=== PATIENT | male | born 1990 | race Asian ===

== ENCOUNTER 2018-12-15 14:45 | Emergency (ER) | payer BC ==
[2018-12-15 15:05] VITALS: BP 115/79
--- NOTE | 2018-12-15 15:28 | ED ---
Abdominal Pain/Male - HPI Summary HPI Summary: 28 yr old male with the complaint of low epigastric pain. Onset 1330 this afternoon. 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 His pain gets up to a 7/10 at times. His pain is less now. He has not vomited. Pain is worse with walking and movement. He drove himself here. - History of Current Complaint Chief Complaint: UCAbdominalPain Stated Complaint: ABD PAIN Time Seen by Provider: 12/15/18 15:15 Pain Intensity: 7 - Allergies/Home Medications Allergies/Adverse Reactions: Allergies Allergy/AdvReac Type Severity Reaction Status Date / Time No Known Allergies Allergy Verified 12/15/18 15:06 Home Medications: Home Medications SUMAtriptan TAB* [Imitrex TAB*] 2 tab PO DAILY PRN 12/15/18 [History Confirmed 12/15/18] PMH/Surg Hx/FS Hx/Imm Hx Infectious Disease History: No Infectious Disease History: Denies: Traveled Outside the in Last 30 Days - Social History Alcohol Use: None Substance Use Type: Reports: None Smoking Status (MU): Never Smoked Tobacco Review of Systems Constitutional: Negative Positive: Abdominal Pain All Other Systems Reviewed And Are Negative: Yes Physical Exam Triage Information Reviewed: Yes Vital Signs On Initial Exam: Initial Vitals Temp Pulse Resp BP Pulse Ox 98.8 F 72 16 115/79 100 12/15/18 14:59 12/15/18 14:59 12/15/18 14:59 12/15/18 14:59 12/15/18 14:59 Vital Signs Reviewed: Yes Appearance: Positive: Well-Appearing, No Pain Distress Skin: Positive: Warm, Skin Color Reflects Adequate Perfusion Head/Face: Positive: Normal Head/Face Inspection Eyes: Positive: EOMI ENT: Positive: Normal ENT inspection Neck: Positive: Nontender Respiratory/Lung Sounds: Positive: Clear to Auscultation, Breath Sounds Present Cardiovascular: Positive: RRR. Negative: Murmur Abdomen Description: Positive: Other: - tender in the epigastric area. No hernias palpated.. Negative: Distended Musculoskeletal: Positive: Strength/ROM Intact Neurological: Positive: Sensory/Motor Intact, Alert, Oriented to Person Place, Time, CN Intact II-III, Normal Gait, Speech Normal Psychiatric: Positive: Normal Diagnostics - Vital Signs Vital Signs Temp Pulse Resp BP Pulse Ox 12/15/18 14:59 98.8 F 72 16 115/79 100 - Laboratory Lab Statement: Any lab studies that have been ordered have been reviewed, and results considered in the medical decision making process. Abdominal Pain Male Course/Dx - Course Course Of Treatment: 28 yr old male with abdominal pain, epigastric. He signed out AMA refusing ambulance transfer. He verbalized he is driving himself to the ER. - Diagnoses Provider Diagnoses: Epigastric abdominal pain Discharge - Sign-Out/Discharge Documenting (check all that apply): Patient Departure All imaging exams completed and their final reports reviewed: No Studies - Discharge Plan Condition: Good Disposition: AGAINST MEDICAL ADVICE Patient Education Materials: Acute Abdominal Pain (ED) Referrals: No Primary Care Phys,NOPCP [Primary Care Provider] - - Billing Disposition and Condition Condition: GOOD Disposition: Against Medical Advice
== END 2018-12-15 15:30 | disposition left against medical advice (07) ==
LOC: UCEAST 14:45
DX: R10.13 Epigastric pain (principal)
CPT/HCPCS: 99202; G0463

== ENCOUNTER 2018-12-15 15:49 | Emergency (ER) | payer BC ==
[2018-12-15 16:57] LABS: ABS Eosinophils 0.1 10^3/ul (0-0.6); ABS Lymphocytes 1.5 10^3/ul (1.0-4.8); ABS Monocytes 0.4 10^3/ul (0-0.8); ABS Neutrophils 5.6 10^3/ul (1.5-7.7); Eosinophil % 1.2 %; Hematocrit 45 % (42-52); Hemoglobin 14.9 g/dL (14.0-18.0); Lymphocyte % 19.6 %; Mean Corpuscular HGB Conc 33 g/dL (31-36); Mean Corpuscular Hemoglobin 29 pg (27-31); Mean Corpuscular Volume 87 fL (80-94); Mean Platelet Volume 8.4 fL (7.4-10.4); Nucleated Red Blood Cells % 0.1; Platelet Count 303 10^3/uL (150-450); Red Cell Distribution Width 13 % (10-15); White Blood Count 7.6 10^3/uL (3.5-10.8)
[2018-12-15 17:11] LABS: ALT 20 U/L (7-52); Albumin 4.5 g/dL (3.2-5.2); Albumin/Globulin Ratio 1.7 (1-3); Alkaline Phosphatase 63 U/L (34-104); BUN/Creatinine Ratio 18.3 (8-20); Blood Urea Nitrogen 21 mg/dL (6-24); C Reactive Protein < 1.00 mg/L (<8.01); CO2 Carbon Dioxide 29 mmol/L (22-32); Calcium 9.5 mg/dL (8.6-10.3); Chloride 105 mmol/L (101-111); EGFR African American 91.6 (>60); EGFR Non-African American 75.7 (>60); Globulin 2.6 g/dL (2-4); Glucose 102 mg/dL (70-100); Sodium 139 mmol/L (135-145); Total Protein 7.1 g/dL (6.4-8.9)
[2018-12-15 17:13] LABS: Anion Gap 5 mmol/L (2-11)
[2018-12-15 18:59] LABS: Potassium Redraw 4.1 mmol/L (3.5-5.0)
[2018-12-15 20:10] LABS: Urine Appearance Clear; Urine Bilirubin Negative (Negative); Urine Blood Negative (Negative); Urine Color Yellow; Urine Glucose Negative (Negative); Urine Ketones Trace (Negative); Urine Nitrite Negative (Negative); Urine Protein Negative (Negative); Urine Specific Gravity 1.016 (1.010-1.030); Urine Urobilinogen Negative (Negative)
--- NOTE | 2018-12-15 20:26 | ED ---
Abdominal Pain/Male - HPI Summary HPI Summary: A 28 y/o male presents to [facility] with a chief complaint of abdominal pain. He reports that he has had sharp pain twice per minute since 13:30, stabbing in his epigastrum. He said that his pain worsened and his colleagues made him come to the ED. He denies any N/V/D. Now he reports feeling better. He says that he had similar symptoms about 10 years ago. He reports a Hx of hiatal hernia and migraines. He denies any FHx. - History of Current Complaint Chief Complaint: EDAbdPain Stated Complaint: ABD PAIN PER PT Time Seen by Provider: 12/15/18 19:43 Hx Obtained From: Patient Onset/Duration: Sudden Onset, Lasting Hours, Still Present Timing: Intermittent - twice per minute Severity Initially: Severe Severity Currently: Mild Pain Intensity: 1 Pain Scale Used: 0-10 Numeric Location: Diffuse Radiates: No Character: Sharp Aggravating Factor(s): Nothing Alleviating Factor(s): Nothing Associated Signs And Symptoms: Negative: Fever, Nausea, Vomiting, Diarrhea - Allergies/Home Medications Allergies/Adverse Reactions: Allergies Allergy/AdvReac Type Severity Reaction Status Date / Time No Known Allergies Allergy Verified 12/15/18 15:06 Home Medications: Home Medications NK [No Home Medications Reported] 12/15/18 [History Confirmed 12/15/18] PMH/Surg Hx/FS Hx/Imm Hx GI History: Reports: Hx Hiatal Hernia Neurological History: Reports: Hx Migraine Infectious Disease History: No Infectious Disease History: Denies: Traveled Outside the [place] in Last 30 Days - Family History Known Family History: Negative: Cardiac Disease, Hypertension, Diabetes - Social History Alcohol Use: None Substance Use Type: Reports: None Smoking Status (MU): Never Smoked Tobacco Review of Systems Negative: Fever Positive: Abdominal Pain. Negative: Vomiting, Diarrhea, Nausea All Other Systems Reviewed And Are Negative: Yes Physical Exam - Summary Physical Exam Summary: Constitutional: Well-developed, Well-nourished, Alert. (-) Distressed Skin: Warm, Dry HENT: Normocephalic; Atraumatic Eyes: Conjunctiva normal Neck: Musculoskeletal ROM normal neck. (-) JVD, (-) Stridor, (-) Nuchal rigidity Cardio: Rhythm regular, rate normal, Heart sounds normal; Intact distal pulses; Radial pulses are 2+ and symmetric. (-) Murmur Pulmonary/Chest wall: Effort normal. (-) Respiratory distress, (-) Wheezes, (-) Rales Abd: Soft, (-) tenderness, (-) Distension, (-) Guarding, (-) Rebound Musculoskeletal: (-) Edema Lymph: (-) Cervical adenopathy Neuro: Alert, Oriented x3 Psych: Mood and affect Normal Triage Information Reviewed: Yes Vital Signs On Initial Exam: Initial Vitals Temp Pulse Resp BP Pulse Ox 98.4 F 72 18 113/60 96 12/15/18 15:56 12/15/18 15:56 12/15/18 15:56 12/15/18 15:56 12/15/18 15:56 Vital Signs Reviewed: Yes Diagnostics - Vital Signs Vital Signs Temp Pulse Resp BP Pulse Ox 12/15/18 17:45 98.4 F 61 20 131/71 98 12/15/18 15:56 98.4 F 72 18 113/60 96 - Laboratory Lab Results: Lab Results 12/15/18 12/15/18 12/15/18 Range/Units 16:33 16:33 16:33 WBC 7.6 (3.5-10.8) 10^3/uL RBC 5.20 (4.18-5.48) 10^6 /uL Hgb 14.9 (14.0-18.0) g/dL Hct 45 (42-52) % MCV 87 (80-94) fL MCH 29 (27-31) pg MCHC 33 (31-36) g/dL RDW 13 (10-15) % Plt Count 303 (150-450) 10^3/uL MPV 8.4 (7.4-10.4) fL Neut % (Auto) 73.5 % Lymph % (Auto) 19.6 % [place] % (Auto) 5.3 % Eos % (Auto) 1.2 % Baso % (Auto) 0.4 % Absolute Neuts (auto) 5.6 (1.5-7.7) 10^3/ul Absolute Lymphs (auto) 1.5 (1.0-4.8) 10^3/ul Absolute Monos (auto) 0.4 (0-0.8) 10^3/ul Absolute Eos (auto) 0.1 (0-0.6) 10^3/ul Absolute Basos (auto) 0.0 (0-0.2) 10^3/ul Absolute Nucleated RBC 0.0 10^3/ul Nucleated RBC % 0.1 Sodium 139 (135-145) mmol/L Potassium TNP Chloride 105 (101-111) mmol/L Carbon Dioxide 29 (22-32) mmol/L Anion Gap 5 (2-11) mmol/L BUN 21 (6-24) mg/dL Creatinine 1.15 (0.67-1.17) mg/dL Est GFR ( Amer) 91.6 (>60) Est GFR (Non-Af Amer) 75.7 (>60) BUN/Creatinine Ratio 18.3 (8-20) Glucose 102 H (70-100) mg/dL Lactic Acid 0.6 (0.5-2.0) mmol/L Calcium 9.5 (8.6-10.3) mg/dL Total Bilirubin 0.60 (0.2-1.0) mg/dL AST TNP ALT 20 (7-52) U/L Alkaline Phosphatase 63 (34-104) U/L C-Reactive Protein < 1.00 (<8.01) mg/L Total Protein 7.1 (6.4-8.9) g/dL Albumin 4.5 (3.2-5.2) g/dL Globulin 2.6 (2-4) g/dL Albumin/Globulin Ratio 1.7 (1-3) Lipase 14 (11.0-82.0) U/L Urine Color Urine Appearance Urine pH (5-9) Ur Specific [place] (1.010-1.030) Urine Protein (Negative) Urine Ketones (Negative) Urine Blood (Negative) Urine Nitrate (Negative) Urine Bilirubin (Negative) Urine Urobilinogen (Negative) Ur Leukocyte Esterase (Negative) Urine Glucose (Negative) 12/15/18 12/15/18 Range/Units 18:10 20:00 WBC (3.5-10.8) 10^3/uL RBC (4.18-5.48) 10^6 /uL Hgb (14.0-18.0) g/dL Hct (42-52) % MCV (80-94) fL MCH (27-31) pg MCHC (31-36) g/dL RDW (10-15) % Plt Count (150-450) 10^3/uL MPV (7.4-10.4) fL Neut % (Auto) % Lymph % (Auto) % [place] % (Auto) % Eos % (Auto) % Baso % (Auto) % Absolute Neuts (auto) (1.5-7.7) 10^3/ul Absolute Lymphs (auto) (1.0-4.8) 10^3/ul Absolute Monos (auto) (0-0.8) 10^3/ul Absolute Eos (auto) (0-0.6) 10^3/ul Absolute Basos (auto) (0-0.2) 10^3/ul Absolute Nucleated RBC 10^3/ul Nucleated RBC % Sodium (135-145) mmol/L Potassium 4.1 Chloride (101-111) mmol/L Carbon Dioxide (22-32) mmol/L Anion Gap (2-11) mmol/L BUN (6-24) mg/dL Creatinine (0.67-1.17) mg/dL Est GFR ( Amer) (>60) Est GFR (Non-Af Amer) (>60) BUN/Creatinine Ratio (8-20) Glucose (70-100) mg/dL Lactic Acid (0.5-2.0) mmol/L Calcium (8.6-10.3) mg/dL Total Bilirubin (0.2-1.0) mg/dL AST 20 ALT (7-52) U/L Alkaline Phosphatase (34-104) U/L C-Reactive Protein (<8.01) mg/L Total Protein (6.4-8.9) g/dL Albumin (3.2-5.2) g/dL Globulin (2-4) g/dL Albumin/Globulin Ratio (1-3) Lipase (11.0-82.0) U/L Urine Color Yellow Urine Appearance Clear Urine pH 6.0 (5-9) Ur Specific [place] 1.016 (1.010-1.030) Urine Protein Negative (Negative) Urine Ketones Trace A (Negative) Urine Blood Negative (Negative) Urine Nitrate Negative (Negative) Urine Bilirubin Negative (Negative) Urine Urobilinogen Negative (Negative) Ur Leukocyte Esterase Negative (Negative) Urine Glucose Negative (Negative) Result Diagrams: 12/15/18 16:33 12/15/18 18:10 Lab Statement: Any lab studies that have been ordered have been reviewed, and results considered in the medical decision making process. - Radiology abdomen x-ray Radiology Interpretation Completed By: Radiologist Summary of Radiographic Findings: Moderately large volume of stool in the colon without additional radiographic finding. ED physician has reviewed this imaging report. - Ultrasound No standard instances Ultrasound Interpretation Completed By: Radiologist Summary of Ultrasound Findings: Negative RIGHT upper quadrant ultrasound. ED physician has reviewed this imaging report. Re-Evaluation - Re-Evaluation First Eval Change: Improved - Patient states his symptoms have resolved, given return precautions including fevers, vomiting, worsening of pain. Abdominal Pain Male Course/Dx - Course Course Of Treatment: 28-year-old male with a history of a hiatal hernia presents with abdominal pain. ddx: UTI/pyelo- no dysuria, no hematuria, UA neg. Appendicitis - no RLQ tenderness, no white count or fevers, low suspicion. Gall bladder pathology - Neg RUQ US, LFT and bili wnl, low suspicion. Pancreatitis - normal lipase. PUD - no hx of PUD, H pylori, or NSAID use low suspicion. GERD - no burning epigastric pain, no nighttime cough , no history of GERD in past - Diagnoses Provider Diagnoses: Epigastric pain Discharge - Sign-Out/Discharge Documenting (check all that apply): Patient Departure - DC Patient Received Moderate/Deep Sedation with Procedure: No - Discharge Plan Condition: Stable Disposition: HOME Patient Education Materials: Epigastric Pain (ED) Referrals: [facility] [Outside] Additional Instructions: You were seen in the emergency department for epigastric pain. Your labs were normal. The ultrasound of your gallbladder is normal. If any studies were not completed at the time of discharge you will be called with the relevant results. Please follow up with your primary care doctor in next 2-3 days and return to emergency department for worsening or concerning symptoms. - Billing Disposition and Condition Condition: STABLE Disposition: Home - Attestation Statements Document Initiated by Scribe: Yes Documenting Scribe: Barrington Arroila Provider For Whom Amanda is Documenting (Include Credential): Andreea Giles MD Scribe Attestation: Barrington Ag, scribed for Andreea Giles MD on 12/15/18 at 2159. Scribe Documentation Reviewed: Yes Provider Attestation: The documentation as recorded by the scribe, Barrington Arriola accurately reflects the service I personally performed and the decisions made by me, Andreea Giles MD Status of Scribe Document: Viewed
[2018-12-15 20:49] VITALS: BP 112/76
== END 2018-12-15 20:48 | disposition home or self-care (01) ==
LOC: ED 15:49
DX: R10.13 Epigastric pain (principal)
CPT/HCPCS: 36415; 74018; 76705; 80053; 81003; 83605; 83690; 85025; 86140; 99282

== ENCOUNTER 2019-03-24 14:34 | Emergency (ER) | payer BC ==
[2019-03-24 14:55] VITALS: BP 127/77
--- NOTE | 2019-03-24 15:20 | UC ---
HPI Febrile Illness - HPI Summary HPI Summary: Mr. Kaufman presents with a fever. 3 days ago he started having pain in his left shoulder and has difficulty lifting it. Today he began to have pain at the second MPJ of his right hand and at this point it hurt so much he can't hold anything. He traveled to [place] 3 weeks ago and was finally came back but felt that he caught a cold soon after with congestion and coughing. That is now resolved. - History of Current Complaint Chief Complaint: UCSkin Hx Obtained From: Patient Onset/Duration: Started Days Ago Timing: Constant Initial Severity: Mild Current Severity: Moderate Pain Intensity: 7 Aggravating Factors: Nothing Alleviating Factors: Nothing Associated Signs and Symptoms: Chills - Allergy/Home Medications Allergies/Adverse Reactions: Allergies Allergy/AdvReac Type Severity Reaction Status Date / Time No Known Allergies Allergy Verified 12/15/18 15:06 Home Medications: Home Medications Ibuprofen [Advil] 200 mg 03/24/19 [History] PMH/Surg Hx/FS Hx/Imm Hx Previously Healthy: Yes - Surgical History Surgical History: None - Family History Known Family History: Negative: Cardiac Disease, Hypertension, Diabetes - Social History Alcohol Use: None Substance Use Type: None Smoking Status (MU): Never Smoked Tobacco Review of Systems All Other Systems Reviewed And Are Negative: Yes Physical Exam - Summary Physical Exam Summary: Is nontoxic in appearance but febrile with borderline tachycardia Triage Information Reviewed: Yes Appearance: Well-Appearing Vital Signs: Initial Vital Signs Temp 102.9 F 03/24/19 14:43 Pulse 96 03/24/19 14:43 Resp 16 03/24/19 14:43 BP 127/77 03/24/19 14:43 Pulse Ox 100 03/24/19 14:43 Eyes: Positive: Conjunctiva Clear ENT: Positive: Normal ENT inspection Neck: Positive: Supple Respiratory Exam: Normal Abdominal Exam: Normal Musculoskeletal Exam: Other - He is very tender in his anterior left shoulder with abduction, flexion or extension. His right second dorsal MPJ is inflamed and erythematous. It's tender to any range of motion Neurological Exam: Normal Psychological Exam: Normal Course/Dx - Course Course Of Treatment: I recommended that they have bloodwork immediately at the emergency department and he agreed to go over there. I explained the risks in putting this off. - Diagnoses Provider Diagnosis: Febrile illness Discharge ED - Sign-Out/Discharge Documenting (check all that apply): Patient Departure All imaging exams completed and their final reports reviewed: No Studies - Discharge Plan Condition: Stable Disposition: HOME-RECOMMEND TO ED Patient Education Materials: Fever in Adults (ED) Referrals: No Primary Care Phys,NOPCP [Primary Care Provider] - Additional Instructions: Please go directly to the emergency department for further evaluation including blood work. - Billing Disposition and Condition Condition: STABLE Disposition: Home-Recommend to ED
== END 2019-03-24 15:58 | disposition home health service (06) ==
LOC: UCEAST 14:34
DX: R50.9 Fever, unspecified (principal)
CPT/HCPCS: 99201; G0463

== ENCOUNTER 2019-03-24 16:12 | Emergency (ER) | payer BC ==
[2019-03-24 18:30] LABS: ABS Lymphocytes 0.9 10^3/ul (1.0-4.8); ABS Monocytes 0.7 10^3/ul (0-0.8); ABS Neutrophils 8.5 10^3/ul (1.5-7.7); Eosinophil % 0.2 %; Hematocrit 42 % (42-52); Hemoglobin 14.5 g/dL (14.0-18.0); Lymphocyte % 9.2 %; Mean Corpuscular HGB Conc 34 g/dL (31-36); Mean Corpuscular Hemoglobin 29 pg (27-31); Mean Corpuscular Volume 86 fL (80-94); Mean Platelet Volume 7.7 fL (7.4-10.4); Platelet Count 281 10^3/uL (150-450); Red Blood Count 4.94 10^6 /uL (4.18-5.48); Red Cell Distribution Width 13 % (10-15); White Blood Count 10.2 10^3/uL (3.5-10.8)
[2019-03-24 18:48] LABS: Albumin 4.4 g/dL (3.2-5.2); Albumin/Globulin Ratio 1.6 (1-3); BUN/Creatinine Ratio 14.3 (8-20); Calcium 9.5 mg/dL (8.6-10.3); EGFR African American 88.1 (>60); EGFR Non-African American 72.8 (>60); Globulin 2.8 g/dL (2-4); Potassium 3.8 mmol/L (3.5-5.0); Total Bilirubin 0.8 mg/dL (0.2-1.0); Total Protein 7.2 g/dL (6.4-8.9)
[2019-03-24 19:50] LABS: INR 1.15 (0.82-1.09)
[2019-03-24 20:37] LABS: C Reactive Protein 17.96 mg/L (<8.01)
[2019-03-24 21:04] LABS: Erythrocyte Sed Rate 4 mm/Hr (0-14)
[2019-03-24] MEDS ORDERED: Ibuprofen TAB* 400 MG PO ONE (21:10)
--- NOTE | 2019-03-24 21:17 | ED ---
Complex/Multi-Sys Presentation - HPI Summary HPI Summary: Patient is a 28 y/o M presenting to [facility] with complaints of left shoulder pain and swelling, pain and swelling of right hand 2nd finger joint, and fever. He notes that he has returned from [place] approximately three weeks ago. 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 He states that he had been experiencing a cough since returning to [place], but this has resolved as of 3 days ago. However, as of 3 days ago, he had onset of pain and swelling to left shoulder. These initial Sx are characterized as mild. This morning, 03/24/19, he reports onset of swelling at joint of right finger, decreased appetite, and fever. Patient went to and was noted to have temp of 102 F. He was sent to ED for further workup. Since arriving in waiting room, patient has had onset of chills and THOMAS. N/V/D, dysuria, abdominal pain, CP and SOB are denied. No injuries to finger or shoulder are noted. PMHx of migraines is noted. Tobacco, alcohol, and substance usage are denied. FMHx of migraines denied. No PSHx is noted. On triage, pain is rated 7/10. Home medications and allergies are reviewed. - History Of Current Complaint Chief Complaint: EDFever Time Seen by Provider: 03/24/19 20:39 Hx Obtained From: Patient Onset/Duration: Still Present Timing: Constant, Hours - fever, decreased appetite, right hand finger swelling and pain, Days Severity Currently: Severe Location: Pain At: - left shoulder, right hand finger Associated Signs And Symptoms: Positive: Headache, Fever, Other - positive - chills, decreased appetite, left shoulder pain and swelling, right hand finger swelling and pain. Negative: SOB, Chest Pain, Nausea, Vomiting, Diarrhea, Abdominal Pain, Dysuria - Allergies/Home Medications Allergies/Adverse Reactions: Allergies Allergy/AdvReac Type Severity Reaction Status Date / Time No Known Allergies Allergy Verified 03/24/19 16:18 PMH/Surg Hx/FS Hx/Imm Hx Endocrine/Hematology History: Denies: Hx Diabetes Cardiovascular History: Denies: Hx Hypertension GI History: Reports: Hx Hiatal Hernia Neurological History: Reports: Hx Migraine Infectious Disease History: No Infectious Disease History: Reports: Traveled Outside the [place] in Last 30 Days - Family History Known Family History: Negative: Cardiac Disease, Hypertension, Diabetes - Social History Alcohol Use: None Substance Use Type: Reports: None Smoking Status (MU): Never Smoked Tobacco Review of Systems - ROS Summary Review of Systems Summary: Home Medications Medication Instructions Recorded Confirmed Type Ibuprofen [Advil] 400 mg PO Q6HR PRN 03/24/19 03/24/19 History Positive: Fever, Chills Negative: Chest Pain Negative: Shortness Of Breath Gastrointestinal: Other - positive - decreased appetite Negative: Abdominal Pain, Vomiting, Diarrhea, Nausea Negative: dysuria Musculoskeletal: Other - positive - left shoulder pain and swelling, right hand finger swelling and pain Positive: Headache All Other Systems Reviewed And Are Negative: Yes Physical Exam - Summary Physical Exam Summary: General: Well-developed, Thin male. No acute distress. HEENT: Normocephalic, Atraumatic. Eyes: Conjuctiva normal, PERRL. Ears: TMs within normal limits. Nares: (-) discharge, (-) erythema. Oropharynx: Clear, mucous membranes moist, (-) exudates. Neck: Soft, FROM, (-) lymphadenopathy, (-) thyromegaly, (-) JVD. Cardiovascular: Normal sinus rhythm, (-) murmur. Lungs: Clear to auscultation bilaterally (-) wheezes, (-) rales, (-) rhonchi. Abdomen: Soft, non-tender, non-distended, (-) organomegaly, normal bowel sounds. Back: (-) CVA tenderness Extremities: Limited ROM of left shoulder secondary to pain. There is no swelling and erythema. Normal pulses and cap refill. Strength and sensation are intact distally. 2nd PIP joint of the right hand is erythematous and swollen. Good ROM of finger, good cap refill. Skin: Hot to touch, dry, (-) rash. Neuro: Alert and oriented x3, no focal deficits. Psychiatric: Mood normal, affect normal. Triage Information Reviewed: Yes Vital Signs On Initial Exam: Initial Vitals Temp Pulse Resp BP Pulse Ox 102.2 F 118 19 130/81 100 03/24/19 16:12 03/24/19 16:12 03/24/19 16:12 03/24/19 16:12 03/24/19 16:12 Vital Signs Reviewed: Yes Procedures - Sedation Patient Received Moderate/Deep Sedation with Procedure: No Diagnostics - Vital Signs Vital Signs Temp Pulse Resp BP Pulse Ox 03/24/19 20:10 102.2 F 125 20 103/61 96 03/24/19 18:06 102.3 F 127 19 116/65 97 03/24/19 16:12 102.2 F 118 19 130/81 100 - Laboratory Lab Results: Lab Results 03/24/19 03/24/19 03/24/19 Range/Units 18:23 18:23 18:35 WBC 10.2 (3.5-10.8) 10^3/uL RBC 4.94 (4.18-5.48) 10^6 /uL Hgb 14.5 (14.0-18.0) g/dL Hct 42 (42-52) % MCV 86 (80-94) fL MCH 29 (27-31) pg MCHC 34 (31-36) g/dL RDW 13 (10-15) % Plt Count 281 (150-450) 10^3/uL MPV 7.7 (7.4-10.4) fL Neut % (Auto) 83.5 % Lymph % (Auto) 9.2 % [place] % (Auto) 6.9 % Eos % (Auto) 0.2 % Baso % (Auto) 0.2 % Absolute Neuts (auto) 8.5 H (1.5-7.7) 10^3/ul Absolute Lymphs (auto) 0.9 L (1.0-4.8) 10^3/ul Absolute Monos (auto) 0.7 (0-0.8) 10^3/ul Absolute Eos (auto) 0.0 (0-0.6) 10^3/ul Absolute Basos (auto) 0.0 (0-0.2) 10^3/ul Absolute Nucleated RBC 0.0 10^3/ul Nucleated RBC % 0.0 ESR Pending INR (Anticoag Therapy) 1.15 H (0.82-1.09) Sodium 137 (135-145) mmol/L Potassium 3.8 (3.5-5.0) mmol/L Chloride 103 (101-111) mmol/L Carbon Dioxide 26 (22-32) mmol/L Anion Gap 8 (2-11) mmol/L BUN 17 (6-24) mg/dL Creatinine 1.19 H (0.67-1.17) mg/dL Est GFR ( Amer) 88.1 (>60) Est GFR (Non-Af Amer) 72.8 (>60) BUN/Creatinine Ratio 14.3 (8-20) Glucose 152 H (70-100) mg/dL Lactic Acid (0.5-2.0) mmol/L Calcium 9.5 (8.6-10.3) mg/dL Total Bilirubin 0.80 (0.2-1.0) mg/dL AST 16 (13-39) U/L ALT 16 (7-52) U/L Alkaline Phosphatase 59 (34-104) U/L C-Reactive Protein 17.96 H (<8.01) mg/L C-React Prot High Sens Cancelled Total Protein 7.2 (6.4-8.9) g/dL Albumin 4.4 (3.2-5.2) g/dL Globulin 2.8 (2-4) g/dL Albumin/Globulin Ratio 1.6 (1-3) 03/24/19 Range/Units 19:30 WBC (3.5-10.8) 10^3/uL RBC (4.18-5.48) 10^6 /uL Hgb (14.0-18.0) g/dL Hct (42-52) % MCV (80-94) fL MCH (27-31) pg MCHC (31-36) g/dL RDW (10-15) % Plt Count (150-450) 10^3/uL MPV (7.4-10.4) fL Neut % (Auto) % Lymph % (Auto) % [place] % (Auto) % Eos % (Auto) % Baso % (Auto) % Absolute Neuts (auto) (1.5-7.7) 10^3/ul Absolute Lymphs (auto) (1.0-4.8) 10^3/ul Absolute Monos (auto) (0-0.8) 10^3/ul Absolute Eos (auto) (0-0.6) 10^3/ul Absolute Basos (auto) (0-0.2) 10^3/ul Absolute Nucleated RBC 10^3/ul Nucleated RBC % ESR INR (Anticoag Therapy) (0.82-1.09) Sodium (135-145) mmol/L Potassium (3.5-5.0) mmol/L Chloride (101-111) mmol/L Carbon Dioxide (22-32) mmol/L Anion Gap (2-11) mmol/L BUN (6-24) mg/dL Creatinine (0.67-1.17) mg/dL Est GFR ( Amer) (>60) Est GFR (Non-Af Amer) (>60) BUN/Creatinine Ratio (8-20) Glucose (70-100) mg/dL Lactic Acid 1.7 (0.5-2.0) mmol/L Calcium (8.6-10.3) mg/dL Total Bilirubin (0.2-1.0) mg/dL AST (13-39) U/L ALT (7-52) U/L Alkaline Phosphatase (34-104) U/L C-Reactive Protein (<8.01) mg/L C-React Prot High Sens Total Protein (6.4-8.9) g/dL Albumin (3.2-5.2) g/dL Globulin (2-4) g/dL Albumin/Globulin Ratio (1-3) Result Diagrams: 03/24/19 18:23 03/24/19 18:23 Lab Statement: Any lab studies that have been ordered have been reviewed, and results considered in the medical decision making process. - Radiology CXR Radiology Interpretation Completed By: ED Physician Summary of Radiographic Findings: No infiltrate, no pleural effusion, pending official report. LEFT SHOULDER X-RAY Radiology Interpretation Completed By: ED Physician Summary of Radiographic Findings: No obvious fracture or deformity noted, pending official report. 2ND RIGHT FINGER X-RAY Radiology Interpretation Completed By: ED Physician Summary of Radiographic Findings: No obvious fracture or deformity noted, pending official report. Complex Multi-Symp Course/Dx Course Of Treatment: 28 year old male with fever and joint pain. recent uri. patient with fever upon arrival. swollen and erythematous pip joint of right 2nd finger. During ED course, patient received Motrin 400 mg PO. improved in symptoms. workup demonstrated mildly elevated esr and glucose. patient discharged to home. off work til wednesday. some lab tests still pending, follow up wiht PCP. follow up sooner for any worsening symptoms - Diagnoses Provider Diagnoses: Fever, Joint pain Discharge ED - Sign-Out/Discharge Documenting (check all that apply): Patient Departure - discharge - Discharge Plan Condition: Stable Disposition: HOME Patient Education Materials: Fever in Adults (ED), Swollen Joint (ED), Shoulder Pain (ED) Forms: *Work Release Referrals: [facility] [Outside] Additional Instructions: PLEASE RETURN TO ED FOR ANY NEW OR WORSENING SYMPTOMS. PLEASE FOLLOW UP WITH YOUR PRIMARY CARE PHYSICIAN WITHIN THREE DAYS. - Billing Disposition and Condition Condition: STABLE Disposition: Home - Attestation Statements Document Initiated by Cecyibe: Yes Documenting Scribe: AARTI OTERO Provider For Whom Amanda is Documenting (Include Credential): YOSI WALTON MD Scribe Attestation: IAARTI, scribed for YOSI WALTON MD on 03/25/19 at 0208. Scribe Documentation Reviewed: Yes Provider Attestation: The documentation as recorded by the AARTI hernandez accurately reflects the service I personally performed and the decisions made by me, YOSI WALTON MD Status of Scribe Document: Viewed
[2019-03-24 23:33] LABS: Urine Appearance Clear; Urine Bilirubin Negative (Negative); Urine Blood Negative (Negative); Urine Color Yellow; Urine Glucose Negative (Negative); Urine Ketones Trace (Negative); Urine Nitrite Negative (Negative); Urine Protein Negative (Negative); Urine Specific Gravity 1.014 (1.010-1.030); Urine Urobilinogen Negative (Negative)
[2019-03-25 00:55] VITALS: BP 110/68
== END 2019-03-25 00:58 | disposition home or self-care (01) ==
LOC: ED 16:12
DX: M25.512 Pain in left shoulder (principal); M79.644 Pain in right finger(s); R50.9 Fever, unspecified
CPT/HCPCS: 36415; 71045; 80053; 81003; 83605; 85025; 85610; 85652; 86038; 86140; 86431; 86618; 87040; 99283; A9270-GY

== ENCOUNTER 2019-03-26 07:00 | Inpatient (IN) | payer BC ==
--- NOTE | 2019-03-26 07:30 | ED ---
Progress - Progress Note Progress Note: Pt is a 28 y/o M presenting to the ED with a chief complaint of LUE issues. Pt is primarily being seen by TRAVIS Quijano, in [facility]. He states he was in [place] about [address] the [employer] [employer] [facility] [employer] [employer] (his work), and about 1 week after returning to [place] he developed a cough and fatigue that persisted until about 3-4 days ago. He then noticed his L shoulder was tight and had some decreased ROM but wasnt too bad. 2 days ago, he woke up with some redness on his R hand, and later in the day his L shoulder was almost immobile. He went to where they noted a fever of 102 that he has since controlled with Ibuprofen. Patient was evaluated in the ED here and discharged. He notes chills and some discomfort/ pain in his L shoulder and with the area of redness on his R hand. 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 He had many mosquito bites in [place] as well, but has not found a tick on his skin and has not been bitten at the [facility]. He denies rash, change in vision, bleeding, or pain anywhere else. Pt is on Truvada for prep, but uses condoms when having sex. He denies penile discharge or dysuria. He has never used IV drugs, does not smoke or use recreational drugs, rarely drinks, and has never had surgery. Constitutional: Well-developed, Well-nourished, Alert. (-) Distressed Skin: Warm, Dry HENT: Normocephalic; Atraumatic Eyes: Conjunctiva normal Neck: Musculoskeletal ROM normal neck. (-) JVD, (-) Stridor, (-) Tracheal deviation Cardio: Rhythm regular, rate normal, Heart sounds normal; Intact distal pulses; Radial pulses are 2+ and symmetric. (-) Murmur Pulmonary/Chest wall: Effort normal. (-) Respiratory distress, (-) Wheezes, (-) Rales Abd: Soft, (-) tenderness, (-) Distension, (-) Guarding, (-) Rebound Musculoskeletal: Tenderness to the anterior bicipital groove in the L shoulder. Limited ROM of all joint modalities, worse with extension and abduction. R hand 2nd MCP joint is edematous, erythematous, with limited ROM in finger, but is able to range. Lymph: (-) Cervical adenopathy Neuro: Alert, Oriented x3 Psych: Mood and affect Normal Course/Dx - Course Course Of Treatment: Patient is here with pain and limited mobility in his left shoulder, pain/redness/swelling in his right second MCP joint. Patient has had fever since Wednesday. 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 Patient also went to [place] 3 weeks ago where he incurred multiple mosquito bites. Patient returned with constitutional symptoms of fatigue and cough. Patient seen here on Wednesday where he had a normal ESR, slightly elevated CRP, and normal WBC count. Upon arrival here, patient could not move his left arm but had no overlying skin changes. Patient did have a swollen, erythematous, warm second MCP joint on the right hand. Given patient's polyarthritis in his age group/gender, his etiology is likely gonococcal in nature. Patient was treated empirically with Rocephin and azithromycin. Patient had repeat blood work which showed worsening of his CRP. Patient also had a blood test sent for dengue fever. Given patient's limited mobility in his left shoulder, fever, infectious symptoms, orthopedic surgery was counsulted and performed joint aspiration to evaluate for septic arthritis. Patient was given vancomycin by orthopedic surgery. Patient was admitted by orthopedic surgery for further management. - Diagnoses Provider Diagnoses: Swollen joint, Left shoulder pain Discharge ED - Sign-Out/Discharge Documenting (check all that apply): Patient Departure - Discharge Plan Condition: Fair Disposition: ADMITTED TO [facility] - Billing Disposition and Condition Condition: FAIR Disposition: Admitted to [facility] - Attestation Statements Document Initiated by Cecyibe: Yes Documenting Scribe: Monica Green Provider For Whom Amanda is Documenting (Include Credential): Gerry Carolina MD. Scribe Attestation: Monica Ag, scribed for Gerry Carolina MD. on 03/26/19 at 1343. Scribe Documentation Reviewed: Yes Provider Attestation: The documentation as recorded by the scribeMonica accurately reflects the service I personally performed and the decisions made by me, Gerry Carolina MD. Status of Scribe Document: Viewed
[2019-03-26] MEDS ORDERED: NS 0.9% 1000 ML** 1,000 ML IV ONE (07:39)
[2019-03-26] MEDS ORDERED: cefTRIAXone(*) 1 GM in NS 0.9% 50 ML* 50 ML IVPB ONE (07:40)
[2019-03-26] MEDS ORDERED: HYDROcodone/ACETAMIN 5-325 MG* 1 TAB PO ONE (07:42)
--- NOTE | 2019-03-26 08:01 | ED ---
HPI Febrile Illness - HPI Summary HPI Summary: This pt is a 28yo healthy M presenting to the ED for the 2nd time in 2 days. 4 days ago he began to have L shoulder pain. He was still able to move the shoulder, but with pain and stiffness. This subsided and subsequently he developed R MCP joint erythema and swelling along with a fever. He was seen in the ED 2 days ago, and xrays of the hand, shoulder and chest were obtained. This with no acute findings on imaging. Pt did however have a 102.2 and tachycardic at 118. Labs obtained which were fairly unremarkable except for a slightly elevated CRP at 17. Since his DC, he has been taking ibuprofen with no improvement of his symptoms. Now he returns with c/o worsening stiffness in the L shoulder and inability to move. He also now c/o worsening R MCP joint erythema (2 days ago was limited to just over MCP) now stating the erythema and swelling has spread to the hand ending just distal to the wrist. Continues to have epic director strength and denies any pain distal to the shoulder. 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 Works at [employer] and states he was working in [place] with animals there as well. Denies diarrhea, nausea, vomiting, THOMAS, skin lesions, bites including tick bites , dysphagia, odynophagia, penile symptoms including discharge. Patient is currently on truvada for prep - uses condoms regularly however. Recently returned from [place] 3 weeks ago. Cough and fatigue since returning, but this has dissipated. Denies any flu like/cold like symptoms. - History of Current Complaint Chief Complaint: EDExtremityUpper Time Seen by Provider: 03/26/19 07:11 Hx Obtained From: Patient Onset/Duration: Started Days Ago - 4 days ago began with shoulder pain Timing: Constant Temperature: 102.2 F - 2 days ago, afebrile today Initial Severity: Moderate Current Severity: Severe Pain Intensity: 7 Pain Scale Used: 0-10 Numeric Aggravating Factors: Other: - attempting movement Associated Signs and Symptoms: Negative, Arthralgia - R mcp joint and L shoulder , Swelling - R MCP joint - Risk Factors Pseudomonas Risk Factors: Negative Serious Bacterial Infection Risk Factors: Travel History, Insect Bite - mosquitos in [place] - Allergy/Home Medications Allergies/Adverse Reactions: Allergies Allergy/AdvReac Type Severity Reaction Status Date / Time No Known Allergies Allergy Verified 03/24/19 16:18 PMH/Surg Hx/FS Hx/Imm Hx Previously Healthy: Yes Endocrine/Hematology History: Denies: Hx Diabetes Cardiovascular History: Denies: Hx Hypertension GI History: Reports: Hx Hiatal Hernia Neurological History: Reports: Hx Migraine - Immunization History Hx Pertussis Vaccination: No Immunizations Up to Date: Yes Infectious Disease History: No Infectious Disease History: Reports: Traveled Outside the in Last 30 Days - [place] - Family History Known Family History: Negative: Cardiac Disease, Hypertension, Diabetes - Social History Occupation: Employed Full-time Lives: Alone Alcohol Use: None Hx Substance Use: No Substance Use Type: Reports: None Hx Tobacco Use: No Smoking Status (MU): Never Smoked Tobacco Review of Systems Positive: Fever. Negative: Chills, Fatigue, Skin Diaphoresis Negative: Palpitations, Chest Pain Negative: Shortness Of Breath, Cough Negative: Abdominal Pain, Vomiting, Diarrhea, Nausea Positive: see HPI Positive: Arthralgia - right mcp joint pain and L shoulder pain Positive: Other Neurological: Negative All Other Systems Reviewed And Are Negative: Yes Physical Exam Triage Information Reviewed: Yes Vital Signs On Initial Exam: Initial Vitals Temp Pulse Resp BP Pulse Ox 97.7 F 127 18 118/74 97 03/26/19 07:01 03/26/19 07:01 03/26/19 07:01 03/26/19 07:01 03/26/19 07:01 Vital Signs Reviewed: Yes Appearance: Positive: Well-Appearing, Well-Nourished Skin: Positive: Warm, Skin Color Reflects Adequate Perfusion, Other - R mcp joint erythema and swelling extending just distal to the wrist Eyes: Positive: Normal Neck: Positive: Supple, Nontender, No Lymphadenopathy Respiratory/Lung Sounds: Positive: Clear to Auscultation, Breath Sounds Present Cardiovascular: Positive: Pulses are Symmetrical in both Upper and Lower Extremities, Tachycardia, S1, S2. Negative: Leg Edema Left, Leg Edema Right Abdomen Description: Positive: Nontender, No Organomegaly, Soft Musculoskeletal: Positive: Limited @ - left shoulder, Pain @ - R mcp and l shoulder with movement Neurological: Positive: Sensory/Motor Intact, Alert, Oriented to Person Place, Time, Speech Normal Psychiatric: Positive: Normal, Affect/Mood Appropriate AVPU Assessment: Alert - Sarai Coma Scale Best Eye Response: 4 - Spontaneous Best Motor Response: 6 - Obeys Commands Best Verbal Response: 5 - Oriented Coma Scale Total: 15 Procedures - Sedation Patient Received Moderate/Deep Sedation with Procedure: No - no sedation in the ED Diagnostics - Vital Signs Vital Signs Temp Pulse Resp BP Pulse Ox 03/26/19 07:01 97.7 F 127 18 118/74 97 - Laboratory Result Diagrams: 03/26/19 07:49 03/26/19 07:49 Lab Statement: Any lab studies that have been ordered have been reviewed, and results considered in the medical decision making process. Re-Evaluation - Re-Evaluation First Eval Change: Improved - pt improved after receiving pain control Course/Dx - Course Course Of Treatment: Pt is evaluated for L shoulder pain and R second MCP joint pain with erythema and swelling. Joint pain to the L shoulder has worsened over the last 2 days and now patient is unable to move it. Denies any pain distal to the L shoulder. Denies feeling cold. Lungs CTA, RRR with no rubs or murmurs. No abdominal tenderness throughout. Pt is afebrile, but has been taking ibuprofen at home. Tachycardic at 117. R second MCP erythema and joint tenderness with swelling without extension distally to the finger or to the wrist. Continues to flex and extend at joint, but this is limited and with discomfort. No vesicular lesions or dermatitis. No evidence of tick bites or other animal bites. Patient has good turgor, color and tone. L shoulder with stiffness and pain. Passive ROM with pain. Unable to actively move shoulder, adduct/abduct or flex and extend. No swelling or erythema noted to the L shoulder joint. Pulses +2 intact bilaterally to radial, posterior tibial and pedal. Labs obtained including WBC= 12.1 up from 10.8. CRP elevated from 2 days ago at 148.07 up from 17.96. ESR 47 up from 4. GC/chlamydia urine pending. Dengue pending. Blood cultures pending. Pt high risk for disseminated gonococcal infection, but differentials include dengue, septic joint arthritis, rat bite fever, other virus, tenosynovitis, frozen shoulder, polyarthritis. Discussed case with Dr. Carolina who also saw patient in the ED. Pt was given 1g Ceftriaxone IV and 1g azithromycin PO. Rheumatoid factor negative. Discussed with Dr. Tirado who will see patient in the ED. ID not available at this time to consult. Dr. Tirado to see patient in the ED and provide bedside glenohumeral joint aspiration. Fluid yellow and slightly cloudy. Sent for body fluid cell count and gram stain. Ordered GC from synovial fluid. This pending. Pt admitted to orthopedics service. Per Dr. Tirado, vancomycin 1500mg IV given. - Febrile Illness Differential Diagnoses: Cellulitis, Fever of Unknown Origin, Sepsis, Other: - septic joint, gonococcal arthritis, rat bite fever, viral illness, dengue, other viral illness, fever of unknown origin, tenosynovitis - Diagnoses Provider Diagnoses: Swollen joint, Left shoulder pain - Provider Notifications Discussed Care Of Patient With: Sánchez Leonard MD will see patient in the ED Time Discussed With Above Provider: 09:21 Instructed by Provider To: Admit As Observation - will go to [place] Discharge ED - Sign-Out/Discharge Documenting (check all that apply): Patient Departure - Discharge Plan Condition: Fair Disposition: ADMITTED TO [facility] - Billing Disposition and Condition Condition: FAIR Disposition: Admitted to [facility] - Attestation Statements Provider Attestation: Please see separate progress note
[2019-03-26 08:11] LABS: Albumin 4.5 g/dL (3.2-5.2); Calcium 9.6 mg/dL (8.6-10.3); Potassium 3.8 mmol/L (3.5-5.0); Total Bilirubin 0.9 mg/dL (0.2-1.0)
[2019-03-26 08:17] LABS: Albumin/Globulin Ratio 1.4 (1-3); C Reactive Protein 148.07 mg/L (<8.01); EGFR African American 107.7 (>60); Globulin 3.3 g/dL (2-4); Total Protein 7.8 g/dL (6.4-8.9)
[2019-03-26] MEDS ORDERED: Azithromycin TAB* 250 MG PO ONE (08:18)
[2019-03-26 08:23] LABS: ABS Lymphocytes 1.4 10^3/ul (1.0-4.8); ABS Monocytes 1.2 10^3/ul (0-0.8); ABS Neutrophils 9.8 10^3/ul (1.5-7.7); Eosinophil % 0.1 %; Hematocrit 43 % (42-52); Hemoglobin 14.8 g/dL (14.0-18.0); Lymphocyte % 10.9 %; Mean Corpuscular HGB Conc 35 g/dL (31-36); Mean Corpuscular Hemoglobin 30 pg (27-31); Mean Corpuscular Volume 86 fL (80-94); Mean Platelet Volume 8.4 fL (7.4-10.4); Platelet Count 278 10^3/uL (150-450); Red Blood Count 4.95 10^6 /uL (4.18-5.48); Red Cell Distribution Width 13 % (10-15); White Blood Count 12.4 10^3/uL (3.5-10.8)
[2019-03-26 08:29] LABS: Urine Appearance Cloudy; Urine Bilirubin Negative (Negative); Urine Blood Negative (Negative); Urine Color Amber; Urine Glucose Negative (Negative); Urine Ketones 2+ (Negative); Urine Nitrite Negative (Negative); Urine Protein 2+(100 mg/dL) (Negative); Urine Specific Gravity 1.036 (1.010-1.030); Urine Urobilinogen Negative (Negative)
[2019-03-26 08:33] LABS: Urine Bacteria Absent (Absent); Urine Red Blood Cell 1+(3-5/hpf) (Absent); Urine White Blood Cell 1+(6-10/hpf) (Absent)
[2019-03-26 09:35] LABS: Erythrocyte Sed Rate 47 mm/Hr (0-14)
[2019-03-26] MEDS ORDERED: Lidocaine 1% INJ* 10 MG/ML 30 ML SDV ONE (10:02)
[2019-03-26] MEDS ORDERED: Vancomycin(*) 1,000 MG VIAL IVPB ONE (10:33)
[2019-03-26 10:48] LABS: Body Fluid Source Synovial Fluid
[2019-03-26] MEDS ORDERED: Lactated Ringers 1000 ML Bag* 1,000 ML IV SCH ×2 (11:00→13:00)
[2019-03-26] MEDS ORDERED: Vancomycin 1500 MG IV - x ONCE IVPB ONE ×2 (11:00)
[2019-03-26] MEDS ORDERED: oxyCODONE/Acetamin 5/325 MG* TAB PO PRN ×2 (11:14)
[2019-03-26] MEDS ORDERED: Ondansetron ODT TAB* 4 MG PO PRN (11:14)
[2019-03-26 12:02] LABS: Body Fluid Mono 5 %
--- NOTE | 2019-03-26 12:08 | PN ---
Progress Note - Progress Note Date of Service: 03/26/19 Note: Concern for L shoulder and R second MCP septic arthritis. See full H&P note. The plan is for Left shoulder arthroscopic irrigation and debridement and Right second metacarpophalangeal joint irrigation and debridement in the operating room. Shoulder aspirate has been sent for studies.
--- NOTE | 2019-03-26 12:12 | HP ---
CC: Elvis Mitchell MD HISTORY AND PHYSICAL: DATE OF ADMISSION/SURGERY: 03/26/19 CHIEF COMPLAINT: Left shoulder and right second MCP joint pain and redness. 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 He comes in, he had been experiencing a little bit of cough since returning to [place] couple of days ago that has resolved earlier this week, probably about Wednesday and Wednesday, he started to have left shoulder pain. He did come to the emergency room on Wednesday and had a temperature of 102 as seen in the medical record. He was seen and evaluated and ultimately looks like he was discharged home at that time. He took Motrin. He comes in now because it is getting much worse. He is really unable to move the left shoulder now. The second MCP joint is getting more painful as well. He takes Truvata and is sexually active. PAST MEDICAL HISTORY: Negative other than a hiatal hernia. PAST SURGICAL HISTORY: Endoscopy for the hiatal hernia recently. FAMILY HISTORY: Negative for any significant infectious type symptoms. His parents are [place]. I believe he went to stock pitcher school in [place], now he is here at [place]. SOCIAL HISTORY: He does not smoke or drink alcohol. MEDICATIONS: Reviewed in the EMR. ALLERGIES: NKDA REVIEW OF SYSTEMS: As above. Again, positive for fevers and some systemic symptoms of infection as well as the right hand and shoulder pain. He denies pain in any other joints. He denies nausea, vomiting, diarrhea. Prior to coming to the ER, he has been a little nauseous since he got a dose of an oral antibiotic about half an hour ago. PHYSICAL EXAMINATION GENERAL: Awake and alert, very pleasant. LUNGS: Clear. CARDIAC: Regular. MUSCULOSKELETAL: The alignment is good. He has tender, swollen right second MCP joint. It is painful to move that joint and get about 60 degrees of motion before it is too painful. The PIP joint, another small joints and the hand are all unremarkable. I cannot move the left shoulder more than 20 or so degrees. I cannot rotate it at all. It is very tender to the touch. The elbow and the left hand are all unremarkable. The bilateral lower extremity joints are all unremarkable. SKIN: There is redness over the dorsum of the right second MCP joint. There is a warm skin around the area of the left shoulder and the right dorsal hand is warm to the touch. There is not really any erythema about the left shoulder. DIAGNOSTIC STUDIES/LAB DATA: X-rays of the hand and shoulder taken couple of nights ago at about 9 o'clock at night show no significant bony abnormality. His white count is 12.4 up from 10.2 a couple of days ago. He has a 79% neutrophils. CRP is 148.07 this morning up from 17.96 a couple of days ago. Creatinine is 1.00. Electrolytes are otherwise unremarkable. INR was 1.15 on 03/24/19. Rheumatoid factor was drawn on 03/24/19 and was negative. They did test him for Chlamydia trachomatis and Neisseria gonorrhoeae on this morning that is still pending. IMPRESSION: Clinical picture concerning for left shoulder septic arthritis and right second metacarpophalangeal joint septic arthritis. PLAN: I aspirated the shoulder and got some cloudy fluid that was sent for cell count, culture and crystal analysis as well as gonococcal analysis. Per consultation with the Infectious Disease doctor, we are going to start vancomycin and ceftriaxone for early broad-spectrum coverage. We will see what the cultures grow and PCR analysis reveals. He has been made n.p.o. and then the plan would be for an arthroscopic irrigation and debridement of the left shoulder joint and irrigation and debridement of the right hand second MCP joint as soon as we have adequate n.p.o. status. [id number]/[facility] #: [id number] [facility]OSPITALCarmelita
[2019-03-26] MEDS: Ondansetron INJ* 2 MG/ML VIAL IV PRN (12:38)
[2019-03-26] MEDS ORDERED: Buffered Lidocaine 1% SYRIN* 1 ML/SYRINGE INTRADERM ONE (12:59)
[2019-03-26] MEDS: Acetaminophen TAB* 325 MG PO SCH ×2 (13:59→23:34)
[2019-03-26] MEDS ORDERED: Propofol* 10 MG/ML 20 ML BTL ONE (14:40)
[2019-03-26] MEDS ORDERED: Lidocaine 2% PF * 5 ML VIAL ONE (14:40)
[2019-03-26] MEDS ORDERED: fentaNYL* 50 MCG/ML 2 ML VIAL (100 MCG VIAL) ONE (14:41)
[2019-03-26] MEDS ORDERED: Midazolam* 1 MG/ML 2 ML VIAL (2 MG) ONE (14:41)
[2019-03-26] MEDS ORDERED: Bupivacaine 0.25% SDV PF* 10 ML VIAL INJ ONE (15:08)
[2019-03-26] MEDS ORDERED: Vancomycin per Pharmacy* NOTE FOLLOW UP SCH (17:00)
[2019-03-26] MEDS ORDERED: Rocuronium* 10 MG/ML VIAL ONE (17:02)
[2019-03-26] MEDS ORDERED: Acetaminophen IV 1GM/100ML * 100 ML ONE (17:12)
[2019-03-26] MEDS ORDERED: Esmolol* 10 MG/ML 10 ML (100 mg) ONE (17:29)
[2019-03-26] MEDS ORDERED: Ketorolac INJ* 30 MG/ML 1 ML VIAL ONE (17:39)
[2019-03-26] MEDS ORDERED: Metoclopramide IV* 5 MG/ML 2 ML VIAL ONE ×2 (17:39→18:17)
[2019-03-26] MEDS ORDERED: Ondansetron INJ* 2 MG/ML VIAL ONE (17:39)
[2019-03-26] MEDS ORDERED: Dexamethasone IV* 4 MG/ML 1 ML (4 MG) ONE (17:39)
[2019-03-26] MEDS ORDERED: DiMENhydriNATE IV* 50 MG/ML VIAL IV PUSH PRN (18:16)
[2019-03-26] MEDS ORDERED: oxyCODONE TAB* 5 MG TAB PO PRN ×2 (18:16→22:18)
[2019-03-26] MEDS ORDERED: Naloxone* 0.4 MG/ML 1 ML VIAL IV PRN (18:16)
[2019-03-26] MEDS ORDERED: HYDROmorphone INJ1* 1 MG/ML SYRINGE IV PRN (18:16)
[2019-03-26] MEDS ORDERED: Phenylephrine 40 MCG/ML SYRINGE ONE (18:19)
[2019-03-26] MEDS ORDERED: Sugammadex * 200 MG/2 ML VIAL IV PUSH ONE (18:25)
[2019-03-26] MEDS: Vancomycin(*) 1,000 MG in NS 0.9% 250 ML* 250 ML IV SCH (19:35)
--- NOTE | 2019-03-26 21:08 | CONSULT ---
Consult Consult: HOSPITALIST CONSULTATION Requesting Provider: Dr. Tirado Reason for Consultation: Sepsis HPI: Mr Kaufman is a 28 yo M who has no significant PMHx who presented to the ER with c/o L shoulder and R 2nd MCP joint pain. 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 Currently he is not in any pain. No SOB. He has not had any diarrhea. While in the OR the patient was reportedly febrile and developed hypotension. Because of the patient becoming septic, the hospitalist service was asked for consultation. PMHx: Hiatal hernia PSHx: none All: NKDA Meds: home and current medications reviewed. FamHx: both parents are living and healthy SocHx: pt does not smoke or drink EtOH. 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 ROS: complete 11 system review of systems negative. PE: BP110/70 HR74 RR16 T98.2 O2 sat96%RA gen: young male lying in bed, bundled up in blankets, NAD card: nl S1S2 RRR, no edema lung: CTA anteriorly abd: BS+ soft, NT, ND ext: small clean dry bandage noted on superior aspect of L shoulder, R hand not inspected at this time skin: warm, dry, no rash neuro: non-focal psych: A&Ox3 A/P: Mr Kaufman is a 28 yo healthy M admitted with L septic shoulder and septic R 2nd MCP joint and became septic in the OR. 1. Sepsis secondary to L septic shoulder and R septic 2nd MCP joint: the patient has been to the OR for washout. Cultures were obtained. Aspiration from the L shoulder S aureus negative. He has been started on ceftriaxone and vancomycin. ID consult tomorrow. The patient's vital signs are now normal. Will monitor overnight on SSSU. Continue NS at 100ml/hr. 2. DVT-P: lovenox 3. Full code
--- NOTE | 2019-03-26 21:45 | OP ---
DATE OF OPERATION: 03/26/19 - ROOM #309 DATE OF : 89 SURGEON: Sánchez Tirado MD PMP CERTIFIED PROJECT MANAGER: TRAVIS Rucker ANESTHESIOLOGIST: Dr. Leal. ANESTHESIA: General. PRE-OP DIAGNOSES: 1. Left septic shoulder arthritis. 2. Right hand second metacarpophalangeal joint septic arthritis. POST-OP DIAGNOSES: 1. Left septic shoulder arthritis. 2. Right hand second metacarpophalangeal joint septic arthritis. OPERATIVE PROCEDURE: 1. Left shoulder arthroscopic irrigation and glenohumeral joint debridement. 2. Right hand second metacarpophalangeal joint open capsulotomy and irrigation and debridement. INDICATIONS: Marino actually has quite a fever and has leukocytosis. I aspirated his left shoulder and got some purulent material and the white blood cell count is back as 70. The initial PCR was negative for staph. He has been given antibiotics, we are waiting for cultures. We came to the surgery now for an I and D of the joints. ESTIMATED BLOOD LOSS: 10 mL. COMPLICATIONS: None. FINDINGS: See above and below. DESCRIPTION OF PROCEDURE: Marino was seen in the preoperative holding area. The correct side, site, and procedures were identified. We came back to the operating room. The arm was prepped and draped in the usual fashion and time- out was performed. The patient was positioned in the beach chair position. I went ahead and made a posterior portal in the standard fashion. I then made an anterior portal in standard fashion. A cannula was then introduced into the anterior portal to the rotator interval. I then placed the shaver into the rotator interval and the scope in the posterior portal. We ran 5 L of fluid through the glenohumeral joint. I then went subacromial and ran some fluid through the subacromial space as well. There were some initial purulent synovial looking fluid that came out, had a greenish appearance to it. We sent that for a culture, aerobic, anaerobic, and fungal cultures as well. After I had gone through the shaver and shaved back some of the inflamed tissue and ran all the fluids through the joint, we withdrew the arthroscopic equipment , and the skin incisions were closed with 3-0 Nylon suture and dressed with Xeroform, 4x4s, and Tegaderm. He was then taken down, positioned supine, and the hand table was brought in. The right arm was prepped and draped in the usual fashion. I made a 2 cm incision over the dorsal radial aspect of the second MCP joint. Dissection was carried down. Full-thickness flaps were raised off the extensor tendon. I extended the split between the EIP and EDC tendon a little bit. A capsulotomy was performed. There was some of that same fluid that was encountered. I irrigated out the joint with over a liter a fluid. Once the joint was looking nice and clean, I closed the tendon split with 4-0 PDS sutures. The skin was closed with 4-0 Nylon suture. The wound was dressed with Xeroform, 4x4s, sterile Webril, and then a splint holding the MCP joint in extension, but allowing for IP joint flexion was applied. The tourniquet was deflated and he was taken to the recovery room in stable condition. [id number]/[facility] #: [id number] [place]
[2019-03-26] MEDS ORDERED: Morphine INJ* 2 MG/ML 1 ML SYRINGE (TWO MG - NEW SYRINGE VERSION) IV PRN (22:18)
[2019-03-26] MEDS ORDERED: Docusate CAP* 100 MG PO PRN (22:19)
[2019-03-26] MEDS: NS 0.9% 1000 ML** 1,000 ML IV SCH (23:42)
[2019-03-27] MEDS: Vancomycin(*) 1,000 MG in NS 0.9% 250 ML* 250 ML IV SCH ×3 (03:38→13:48)
[2019-03-27] MEDS: Acetaminophen TAB* 325 MG PO SCH (05:50)
[2019-03-27] MEDS: Ondansetron INJ* 2 MG/ML VIAL IV PRN (05:57)
[2019-03-27 06:11] LABS: ABS Lymphocytes 1.1 10^3/ul (1.0-4.8); ABS Monocytes 0.8 10^3/ul (0-0.8); ABS Neutrophils 12.1 10^3/ul (1.5-7.7); Hematocrit 35 % (42-52); Hemoglobin 11.7 g/dL (14.0-18.0); Lymphocyte % 7.8 %; Mean Corpuscular HGB Conc 34 g/dL (31-36); Mean Corpuscular Hemoglobin 29 pg (27-31); Mean Corpuscular Volume 86 fL (80-94); Mean Platelet Volume 8.4 fL (7.4-10.4); Platelet Count 222 10^3/uL (150-450); Red Blood Count 4.04 10^6 /uL (4.18-5.48); Red Cell Distribution Width 13 % (10-15); White Blood Count 13.9 10^3/uL (3.5-10.8)
[2019-03-27 06:46] LABS: Calcium 8.1 mg/dL (8.6-10.3); Potassium 4.3 mmol/L (3.5-5.0)
[2019-03-27 06:51] LABS: BUN/Creatinine Ratio 12.9 (8-20); EGFR African American 129.9 (>60); EGFR Non-African American 107.3 (>60)
[2019-03-27] MEDS: cefTRIAXone(*) 2 GM in NS 0.9% 100 ML* 100 ML IVPB SCH (08:35)
[2019-03-27] MEDS ORDERED: PROCHLORPERAZINE INJ 5 MG/ML 2 ML VIAL IV PRN (10:48)
[2019-03-27] MEDS ORDERED: Vancomycin Trough Check NOTE FOLLOW UP ONE (11:00)
[2019-03-27] MEDS: Enoxaparin(*) 40 MG/0.4 ML SYR SUBCUT SCH (11:49)
[2019-03-27] MEDS: NS 0.9% 1000 ML** 1,000 ML IV SCH (12:02)
[2019-03-27] MEDS ORDERED: oxyCODONE TAB* 5 MG TAB PO PRN (12:26)
[2019-03-27] MEDS ORDERED: Acetaminophen TAB* 325 MG PO PRN (12:27)
[2019-03-27] MEDS: Scopolamine 1.5 mg* PATCH TRANSDERM SCH ×2 (12:40→13:14)
[2019-03-27] MEDS ORDERED: Lactated Ringers 1000 ML Bag* 1,000 ML IV SCH (13:00)
[2019-03-27 13:51] LABS: Chlamydia trachomatis NAA Negative (Negative); Neisseria gonorrhoeae (GC) NAA Negative (Negative)
[2019-03-27] MEDS: Vancomycin(*) 1,250 MG in NS 0.9% 250 ML* 250 ML IVPB SCH ×2 (14:10→21:48)
--- NOTE | 2019-03-27 15:07 | CONS ---
DATE OF CONSULTATION: 03/27/2019. REQUESTING PHYSICIAN: Dr. Tirado. CONSULTING SERVICE: Infectious Disease. REASON FOR CONSULTATION: Septic arthritis left shoulder and right second MCP joint. IMPRESSION: Septic arthritis left shoulder and right second MCP joint, both treated with incision debridement. He has had a fever and rash under his eyelids. 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 Recent extensive rodent exposure here and traveled to [place] where he was working with dogs and cats. Blood cultures here are negative. Joint fluid from the left shoulder shows 4+ neutrophils, no organism, staph aureus PCR negative. With the rodent exposure, rat bite fever and streptobacillus are considerations. He does have a number of recent of partners. Gonococcal arthritis or reactive process related to a distant gonococcal or chlamydia infection are considerations. RECOMMENDATIONS: Will continue Vancomycin with goal trough 15 to 20, as well as Ceftriaxone. Await joint fluid culture. I discussed with Dr. Tirado sending gonorrhea and chlamydia on PCR from the left shoulder fluid which has been done. We will check the urine, rectum, and pharynx for the same. HISTORY OF PRESENT ILLNESS: This is a 28-year-old man with left shoulder and right hand pain. A couple of weeks ago he was in [place], had an upper respiratory infection after that. 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 No bites or scratches he is aware of. 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 He had extensive contact with them which was a little out of the ordinary for his work. Earlier in the week, he developed right second MCP pain, swelling, and redness and then left shoulder pain and stiffness with fever. He was seen in the ER and was prescribed anti- inflammatories, but because of persistent symptoms came back. He was seen by Dr. Tirado. He was taken to the OR yesterday for incision debridement which he tolerated well. He has had no new joint symptoms. He has a rash under both eyelids. No rash elsewhere. His white count was 12,000 yesterday and 13,000 today. CRP was 150. He has not had anything like this happen before. He has been on Truvada. His last HIV test was negative three months ago. PAST MEDICAL HISTORY: Hiatal hernia. MEDICATIONS: 1. Tylenol. 2. Ceftriaxone 2 gm daily. 3. Zofran as needed. 4. Oxycodone as needed. 5. Scopolamine patch. 6. Vancomycin 1 gm every 8 hours. ALLERGIES: No known drug allergies. FAMILY HISTORY: No recurrent infections. SOCIAL HISTORY: He lives in [place]. 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 He has traveled to [place] as above. REVIEW OF SYSTEMS: All negative except as noted above to a 12 point review. PHYSICAL EXAM: General: He is awake, not in distress. Vital Signs: Temperature 36.6, heart rate 58, respiratory rate 16, blood pressure 114/69, oxygen saturation 98 percent on room air. Neurologic: He is oriented times three, follows all commands, moves all extremities. HEENT: There is no conjunctival hemorrhage. Oropharynx without lesions. Neck: Supple without mass. Heart: Regular rate and rhythm without murmurs, rubs, or gallops. Lungs : Clear to auscultation bilaterally. Abdomen: Soft, nontender, nondistended. There are bowel sounds present. Lymph nodes: There is no cervical, supraclavicular, inguinal, axillary, or epitrochlear lymph adenopathy. Skin: There are petechiae under both eyelids. There is no splinter hemorrhage. There is no conjunctival hemorrhage. Musculoskeletal: There is no spine tenderness to palpation. The left shoulder is bandaged. The right hand is bandaged. There is no other joint synovitis. LABORATORY DATA: White blood cell count 13, hemoglobin 11, platelets 222, creatinine 0.8. Please see impressions and recommendations outlined above that I discussed with Dr. Tirado. Thank you for asking me to see Mr. Kaufman. [id number]/[id number] #: [id number] [facility]
--- NOTE | 2019-03-27 15:16 | PN ---
Progress Note - Progress Note Date of Service: 03/27/19 SOAP: Subjective: []Pt seen at bedside. Nausea is his only complaint. Denies CP, SOB, dizziness. L shoulder and R hand pain are well controlled. He is decreasing his intake of oxycodone due to nausea and pain remains well controlled. Objective: []Gen: Appears well, NAD LUE: Dressings CDI, shoulder without erythema or edema. Passive ROM 0-90 adb and ff without pain. Sensation intact to light touch distally, capillary refill less than two seconds distally RUE: Dressing CDI. Able to f/e all digits, no pain with full passive extension. Sensation intact to light touch distally, cap refill less than two seconds distally. Assessment: []1. Left septic shoulder arthritis. 2. Right hand second metacarpophalangeal joint septic arthritis. OPERATIVE PROCEDURE: 1. Left shoulder arthroscopic irrigation and glenohumeral joint debridement. 2. Right hand second metacarpophalangeal joint open capsulotomy and irrigation and debridement. Plan: []WBAT L shoulder WBAT R hand GC/CT swabs pending ID consulting: ceftriaxone and follow cultures pain: removed oxycodone due to nausea. replaced with norco, ketorolac Nausea: zofran, compazine, scop patch Vital Signs Temp 97.8 F 03/27/19 11:26 Pulse 58 03/27/19 11:26 Resp 16 03/27/19 11:26 BP 114/69 03/27/19 11:26 Pulse Ox 98 03/27/19 11:26 Intake & Output 03/26/19 03/27/19 03/27/19 18:59 06:59 18:59 Intake Total 426 1653 2201 Output Total 225 1700 375 Balance 201 -47 1826 Weight 130 lb Intake: IV Fluids 176 590 6994 ABX - VANCOMYCIN 260 LR 103 595 6554 NS (0.9%) 991 IVPB 233 110 ABX - VANCOMYCIN 233 NS (0.9%) 110 Oral 1240 100 Output: Urine 225 1700 375 Other: Date of Last Bowel 03/25/19 Movement Laboratory Last Values WBC 13.9 10^3/uL (3.5-10.8) H 03/27/19 05:38 RBC 4.04 10^6 /uL (4.18-5.48) L 03/27/19 05:38 Hgb 11.7 g/dL (14.0-18.0) L 03/27/19 05:38 Hct 35 % (42-52) L 03/27/19 05:38 MCV 86 fL (80-94) 03/27/19 05:38 MCH 29 pg (27-31) 03/27/19 05:38 MCHC 34 g/dL (31-36) 03/27/19 05:38 RDW 13 % (10-15) 03/27/19 05:38 Plt Count 222 10^3/uL (150-450) 03/27/19 05:38 MPV 8.4 fL (7.4-10.4) 03/27/19 05:38 Neut % (Auto) 86.8 % 03/27/19 05:38 Lymph % (Auto) 7.8 % 03/27/19 05:38 Jerome % (Auto) 5.4 % 03/27/19 05:38 Eos % (Auto) 0.0 % 03/27/19 05:38 Baso % (Auto) 0.0 % 03/27/19 05:38 Absolute Neuts (auto) 12.1 10^3/ul (1.5-7.7) H 03/27/19 05:38 Absolute Lymphs (auto) 1.1 10^3/ul (1.0-4.8) 03/27/19 05:38 Absolute Monos (auto) 0.8 10^3/ul (0-0.8) 03/27/19 05:38 Absolute Eos (auto) 0.0 10^3/ul (0-0.6) 03/27/19 05:38 Absolute Basos (auto) 0.0 10^3/ul (0-0.2) 03/27/19 05:38 Absolute Nucleated RBC 0.0 10^3/ul 03/27/19 05:38 Nucleated RBC % 0.0 03/27/19 05:38 ESR 47 mm/Hr (0-14) H 03/26/19 07:49 Sodium 138 mmol/L (135-145) 03/27/19 05:38 Potassium 4.3 mmol/L (3.5-5.0) 03/27/19 05:38 Chloride 110 mmol/L (101-111) 03/27/19 05:38 Carbon Dioxide 24 mmol/L (22-32) 03/27/19 05:38 Anion Gap 4 mmol/L (2-11) 03/27/19 05:38 BUN 11 mg/dL (6-24) 03/27/19 05:38 Creatinine 0.85 mg/dL (0.67-1.17) 03/27/19 05:38 Est GFR ( Amer) 129.9 (>60) 03/27/19 05:38 Est GFR (Non-Af Amer) 107.3 (>60) 03/27/19 05:38 BUN/Creatinine Ratio 12.9 (8-20) 03/27/19 05:38 Glucose 154 mg/dL (70-100) H 03/27/19 05:38 Calcium 8.1 mg/dL (8.6-10.3) L 03/27/19 05:38 Total Bilirubin 0.90 mg/dL (0.2-1.0) 03/26/19 07:49 AST 26 U/L (13-39) 03/26/19 07:49 ALT 26 U/L (7-52) 03/26/19 07:49 Alkaline Phosphatase 64 U/L (34-104) 03/26/19 07:49 Total Creatine Kinase 100 U/L (10-223) 03/26/19 07:49 C-Reactive Protein 148.07 mg/L (<8.01) H 03/26/19 07:49 Total Protein 7.8 g/dL (6.4-8.9) 03/26/19 07:49 Albumin 4.5 g/dL (3.2-5.2) 03/26/19 07:49 Globulin 3.3 g/dL (2-4) 03/26/19 07:49 Albumin/Globulin Ratio 1.4 (1-3) 03/26/19 07:49 Urine Color Kendal 03/26/19 08:00 Urine Appearance Cloudy 03/26/19 08:00 Urine pH 5.0 (5-9) 03/26/19 08:00 Ur Specific Henley 1.036 (1.010-1.030) H 03/26/19 08:00 Urine Protein 2+(100 mg/dl) (Negative) A 03/26/19 08:00 Urine Ketones 2+ (Negative) A 03/26/19 08:00 Urine Blood Negative (Negative) 03/26/19 08:00 Urine Nitrate Negative (Negative) 03/26/19 08:00 Urine Bilirubin Negative (Negative) 03/26/19 08:00 Urine Urobilinogen Negative (Negative) 03/26/19 08:00 Ur Leukocyte Esterase Negative (Negative) 03/26/19 08:00 Urine WBC (Auto) 1+(6-10/hpf) (Absent) A 03/26/19 08:00 Urine RBC (Auto) 1+(3-5/hpf) (Absent) A 03/26/19 08:00 Urine Bacteria Absent (Absent) 03/26/19 08:00 Urine Glucose Negative (Negative) 03/26/19 08:00 Urine Ascorbic Acid * (Negative) A 03/26/19 08:00 Fluid Source Synovial fluid 03/26/19 10:30 Fluid Volume 3.0 mL 03/26/19 10:30 Fluid Color Yellow 03/26/19 10:30 Fluid Appearance Cloudy 03/26/19 10:30 Fluid WBC 22915 /mcL ([id number]) 03/26/19 10:30 Fluid RBC 19520 /mcL 03/26/19 10:30 Fluid Tot Cell Count 100 03/26/19 10:30 Fluid Neutrophils 93 % 03/26/19 10:30 Fluid Lymphocytes 2 % 03/26/19 10:30 Fluid Monocytes 5 % 03/26/19 10:30 Fluid Cell Count Rvw By 03/26/19 10:30 Vancomycin Trough 7.2 mcg/mL 03/27/19 11:14 C.trachomatis (Amp Det) Negative (Negative) 03/26/19 07:53 N.gonorrhoeae (Amp Det) Negative (Negative) 03/26/19 07:53
[2019-03-27 15:38] LABS: HIV 4th Generation Nonreactive (Nonreactive)
[2019-03-27] MEDS ORDERED: HYDROcodone/ACETAMIN 5-325 MG* 1 TAB PO PRN ×2 (16:10)
[2019-03-27] MEDS: Ketorolac INJ* 30 MG/ML 1 ML VIAL IV PUSH PRN ×2 (16:49→22:59)
[2019-03-28] MEDS: NS 0.9% 1000 ML** 1,000 ML IV SCH (02:12)
[2019-03-28] MEDS: Vancomycin(*) 1,250 MG in NS 0.9% 250 ML* 250 ML IVPB SCH ×3 (05:51→22:13)
[2019-03-28] MEDS: Ketorolac INJ* 30 MG/ML 1 ML VIAL IV PUSH PRN ×3 (05:51→19:20)
[2019-03-28 05:52] LABS: BUN/Creatinine Ratio 14.4 (8-20); Calcium 7.8 mg/dL (8.6-10.3); EGFR African American 121.6 (>60); EGFR Non-African American 100.5 (>60); Potassium 3.8 mmol/L (3.5-5.0)
[2019-03-28] MEDS: Mometasone/Formoter 200/5 MDI INH SCH ×2 (06:28→22:24)
[2019-03-28 07:38] LABS: ABS Monocytes 0.7 10^3/ul (0-0.8); ABS Neutrophils 7.7 10^3/ul (1.5-7.7); Eosinophil % 0.1 %; Hematocrit 35 % (42-52); Hemoglobin 11.5 g/dL (14.0-18.0); Lymphocyte % 19.4 %; Mean Corpuscular HGB Conc 33 g/dL (31-36); Mean Corpuscular Hemoglobin 29 pg (27-31); Mean Corpuscular Volume 87 fL (80-94); Nucleated Red Blood Cells % 0.1; Platelet Count 262 10^3/uL (150-450); Red Cell Distribution Width 13 % (10-15); White Blood Count 10.4 10^3/uL (3.5-10.8)
--- NOTE | 2019-03-28 08:21 | CONSULT ---
Subjective Date of Service: 03/28/19 Interval History: Pt with significant retching yesterday, now with petechiae under eyes. Eventually, he experienced small amount of emesis and thinks he had blood clots in gastric fluid, although he described them as brown colored. He denies bright red blood or coffee-ground emesis. Hgb today is stable. Pt reports history of PUD as a teenager, which resolved with course of PPI. States he was having significant stress and H pylori was negative. Discussed that he could have recurrence of ulcer or tear from retching , and if his Hgb declines, we can call GI. Pt amenable to this plan. Pt was started on NSAID yesterday by primary team. Will initiate PPI only while on NSAIDs given PUD history. Pt currently denying epigastric burning or sour taste in mouth. Review of Systems - Measurements Intake and Output: Intake and Output Last 24 Hours 03/26/19 03/27/19 03/28/19 03/29/19 06:59 06:59 06:59 06:59 Intake Total 2079 4496 Output Total 1925 1375 600 Balance 154 3121 -600 Weight 130 lb Intake: IV Fluids 606 3266 ABX - VANCOMYCIN 260 290 LR 346 1000 NS (0.9%) 1976 IVPB 233 110 ABX - VANCOMYCIN 233 NS (0.9%) 110 Oral 1240 1120 Output: Urine 1925 1375 600 Other: Date of Last Bowel 03/25/19 Movement Objective Active Medications: Acetaminophen (Tylenol Tab*) 975 mg PO Q8HR PRN PRN Reason: PAIN - MILD Hydrocodone Bitart/Acetaminophen ([place] 5-325 Tab*) 1 tab PO Q4H PRN PRN Reason: PAIN - MODERATE Hydrocodone Bitart/Acetaminophen ([place] 5-325 Tab*) 2 tab PO Q4H PRN PRN Reason: PAIN - SEVERE Enoxaparin Sodium (Lovenox(*)) 40 mg SUBCUT DAILY [facility] Last Admin: 03/27/19 11:49 Dose: 40 mg Ceftriaxone Sodium 2 gm/ (Sodium Chloride) 100 mls @ 200 mls/hr IVPB Q24H [facility] Last Admin: 03/27/19 08:35 Dose: 200 mls/hr Sodium Chloride (Ns 0.9% 1000 Ml) 1,000 mls @ 100 mls/hr IV .PER RATE [facility] Last Admin: 03/28/19 02:12 Dose: 100 mls/hr Vancomycin HCl 1,250 mg/ (Sodium Chloride) 250 mls @ 166.667 mls/hr IVPB Q8H [facility] Last Admin: 03/28/19 05:51 Dose: 166.667 mls/hr Ketorolac Tromethamine (Toradol Inj*) 30 mg IV PUSH Q6H PRN PRN Reason: breakthrough pain Last Admin: 03/28/19 05:51 Dose: 30 mg Mometasone Furoate/Formoterol Fumar (Dulera 200/5 Mdi*) 2 puff INH BID [facility] Last Admin: 03/28/19 06:28 Dose: 2 puff Ondansetron HCl (Zofran Inj*) 4 mg IV Q6H PRN PRN Reason: NAUSEA Last Admin: 03/27/19 05:57 Dose: 4 mg Ondansetron HCl (Zofran Odt Tab*) 4 mg PO Q6H PRN PRN Reason: NAUSEA Last Admin: 03/26/19 23:35 Dose: 4 mg Pantoprazole Sodium (Protonix Tab*) 40 mg PO DAILY [facility] Pharmacy Consult (Vancomycin Per Pharmacy*) 1 note FOLLOW UP .VANC PER PHARMACY [facility]; Protocol Pharmacy Profile Note (Scopolamine Patch Remove*) 1 note PATCH OFF 1300 [facility] Pharmacy Profile Note (Vancomycin Trough Check) 1 note FOLLOW UP ONCE ONE Stop: 03/29/19 05:31 Prochlorperazine (Compazine Tab*) 5 mg PO Q6H PRN PRN Reason: NAUSEA Prochlorperazine Edisylate (Compazine Inj*) 5 mg IV Q6H PRN PRN Reason: NAUSEA/VOMITING Last Admin: 03/27/19 11:13 Dose: 5 mg Scopolamine (Transderm-Scop 1.5 Mg Patch*) 1 patch TRANSDERM Q72H [facility] Last Admin: 03/27/19 13:14 Dose: Not Given Vital Signs - 8 hr 03/28/19 03/28/19 03/28/19 03:54 07:21 08:00 Temperature 98.0 F 97.8 F Pulse Rate 58 89 Respiratory 16 16 18 Rate Blood Pressure 117/75 131/72 (mmHg) O2 Sat by Pulse 96 97 Oximetry Oxygen Devices in Use Now: None Appearance: well-appearing pleasant young man in NAD, alert and interactive, appears comfortable Eyes: - - petechiae over lower eye lids Ears/Nose/Mouth/Throat: Clear Oropharnyx - no thrush, Mucous Membranes Moist Respiratory: Symmetrical Chest Expansion and Respiratory Effort, Clear to Auscultation Cardiovascular: NL Sounds; No Murmurs; No JVD, RRR Abdominal: NL Sounds; No Tenderness; No Distention, No Hepatosplenomegaly Extremities: No Edema, - - R wrist in splint with KATT wrap Neurological: Alert and Oriented x 3 Result Diagrams: 03/28/19 05:09 03/28/19 05:09 Microbiology and Other Data: Microbiology 03/26/19 07:49 Aerobic Blood Culture - Preliminary Blood Venous No Growth Day 2 Anaerobic Blood Culture - Preliminary No Growth Day 2 03/26/19 17:40 Anaerobic Culture - Preliminary Wound No Growth Day 1 03/26/19 17:40 Gram Stain - Final Shoulder Left Wound Culture - Preliminary No Growth Day 1 03/26/19 11:04 Gram Stain - Final Joint Fluid(Synovial) - Shoulder Left Body Fluid Culture - Preliminary No Growth Day 1 Skin and Soft Tissue MRSA/MSSA (PCR - Final Mrsa Negative S.aureus Negative 03/26/19 08:00 Urine Culture - Final Urine No Growth (<1,000 CFU/mL) Assessment/Plan - Billing Assessment: 28 year old healthy man presents with cough, L shoulder pain, R 2nd MCP joint pain, and fevers. Found with polyarticular arthritis, with OR washout significant for purulence but currently neg gram stain and cultures. Medicine consulted for brief episode of hypotension while on anaesthesia. Plan: 1. Septic joints: - care per ortho team and ID 2. History of PUD, with recent nausea and vomiting and possible small amount of hematemesis. Likely that nausea is from opioids, given timing. May have small Ruthy-Lara tear without clinically significant bleeding. - will initiate PPI - cont anti-emetics prn - monitor hemodynamics and Hgb - caution with opioids and NSAIDs - bowel regimen while on opioids
[2019-03-28] MEDS: Enoxaparin(*) 40 MG/0.4 ML SYR SUBCUT SCH (08:27)
[2019-03-28] MEDS: cefTRIAXone(*) 2 GM in NS 0.9% 100 ML* 100 ML IVPB SCH (08:27)
[2019-03-28] MEDS: Pantoprazole TAB * 40 MG TAB PO SCH (08:30)
[2019-03-28] MEDS ORDERED: Magnesium Hydroxide LIQ* 30 ML UDC PO PRN (08:33)
--- NOTE | 2019-03-28 10:45 | PN ---
Progress Note - Progress Note Date of Service: 03/28/19 Note: POD #2 S/P Left shoulder and right hand irrigation: patient resting comfortably in bed reading. Denies pain in right hand and improved discomfort in left shoulder. He is only using Toradol for pain with good relief. He denies fever, chills, SOB, numbness or tingling in extremities. Dressings taken down today. Incisions well approximated with minimal erythema, no drainage or ecchymosis. Incisions redressed with adherent Telfa dressings. Left shoulder PROM FF 130, Abd 90 with some discomfort. Right hand digit movement pain free with intact sensation, 2+ radial pulse and brisk capillary refill. Will continue to monitor. ABX as per ID and appreciate medicine's guidance.
--- NOTE | 2019-03-28 16:28 | PN ---
Progress Note - Progress Note Date of Service: 03/28/19 SOAP: Subjective: CC: septic arthritis HPI: 28 year old man with septic arthritis left shoulder and nd MCP joint, both I&D, pain improving. Vomiting better since stopping oxycodone. No fever, rash , or diarrhea. No new joints bothering him. Objective: Vital Signs Temp 37.0 C 03/28/19 15:25 Pulse 93 03/28/19 15:25 Resp 16 03/28/19 15:25 BP 114/74 03/28/19 15:25 Pulse Ox 96 03/28/19 15:25 Intake & Output 03/27/19 03/28/19 03/28/19 18:59 06:59 18:59 Intake Total 2201 2295 1030 Output Total 445 049 0810 Balance 1576 1545 -720 Intake: IV Fluids 1990 1275 ABX - VANCOMYCIN 290 LR 1000 NS (0.9%) 991 985 IVPB 110 380 ABX - CEFTRIAXONE 110 ABX - VANCOMYCIN 270 NS (0.9%) 110 Oral 100 1020 650 Output: Urine 239 670 7620 Gen:awake, no distress HEENT: no thrush Heart:RRR no murmur Lungs:CTA BL Abd:+BS NTND soft Skin: no rash MSK: Left shoulder decr and Right 2nd MCP dec ROM, no erythema Laboratory Results - last 24 hr 03/26/19 03/27/19 03/27/19 10:30 11:10 14:53 WBC RBC Hgb Hct MCV MCH MCHC RDW Plt Count MPV Neut % (Auto) Lymph % (Auto) Bates % (Auto) Eos % (Auto) Baso % (Auto) Absolute Neuts (auto) Absolute Lymphs (auto) Absolute Monos (auto) Absolute Eos (auto) Absolute Basos (auto) Absolute Nucleated RBC Nucleated RBC % Sodium Potassium Chloride Carbon Dioxide Anion Gap BUN Creatinine Est GFR ( Amer) Est GFR (Non-Af Amer) BUN/Creatinine Ratio Glucose Calcium C.trachomatis (Amp Det) Cancelled HIV 1&2 Ab/P24 Ag 4thGn Nonreactive N.gonorrhoeae (Amp Det) Cancelled Miscellaneous Test See comment 03/27/19 03/28/19 03/28/19 14:53 05:09 05:09 WBC 10.4 RBC 4.00 L Hgb 11.5 L Hct 35 L MCV 87 MCH 29 MCHC 33 RDW 13 Plt Count 262 MPV 8.0 Neut % (Auto) 73.8 Lymph % (Auto) 19.4 Bates % (Auto) 6.6 Eos % (Auto) 0.1 Baso % (Auto) 0.1 Absolute Neuts (auto) 7.7 Absolute Lymphs (auto) 2.0 Absolute Monos (auto) 0.7 Absolute Eos (auto) 0.0 Absolute Basos (auto) 0.0 Absolute Nucleated RBC 0.0 Nucleated RBC % 0.1 Sodium 140 Potassium 3.8 Chloride 112 H Carbon Dioxide 23 Anion Gap 5 BUN 13 Creatinine 0.90 Est GFR ( Amer) 121.6 Est GFR (Non-Af Amer) 100.5 BUN/Creatinine Ratio 14.4 Glucose 93 Calcium 7.8 L C.trachomatis (Amp Det) Cancelled HIV 1&2 Ab/P24 Ag 4thGn N.gonorrhoeae (Amp Det) Cancelled Miscellaneous Test Microbiology 03/26/19 11:04 Joint Fluid(Synovial) - Shoulder Left Gram Stain - Final 03/26/19 11:04 Joint Fluid(Synovial) - Shoulder Left Body Fluid Culture - Preliminary No Growth Day 2 03/26/19 11:04 Joint Fluid(Synovial) - Shoulder Left Skin and Soft Tissue MRSA/MSSA (PCR - Final Mrsa Negative S.aureus Negative 03/26/19 17:40 Wound Anaerobic Culture - Preliminary No Growth Day 2 03/26/19 17:40 Shoulder Left Gram Stain - Final 03/26/19 17:40 Shoulder Left Wound Culture - Preliminary No Growth Day 2 03/26/19 07:49 Blood Venous Aerobic Blood Culture - Preliminary No Growth Day 2 03/26/19 07:49 Blood Venous Anaerobic Blood Culture - Preliminary No Growth Day 2 Assessment: 1. Polyarticular septic arthritis; culture negative to date. Differential includes staph, strep, GNR, RBF, gonococcal arthritis Plan: 1. continue vancomycin goal tr 15-20 and ceftriaxone 1 gm daily, day 08/28 and will pln on this combo for discharge (orders written) unless further micro studies are revealing. 35 minutes floor time >50% face to face in counseling regarding PICC and home antibiotics and monitoring.
[2019-03-29] MEDS ORDERED: Vancomycin Trough Check NOTE FOLLOW UP ONE (05:30)
[2019-03-29 06:18] LABS: ABS Eosinophils 0.1 10^3/ul (0-0.6); ABS Monocytes 0.6 10^3/ul (0-0.8); ABS Neutrophils 5.6 10^3/ul (1.5-7.7); Eosinophil % 1.4 %; Hematocrit 36 % (42-52); Hemoglobin 12.3 g/dL (14.0-18.0); Mean Corpuscular HGB Conc 34 g/dL (31-36); Mean Corpuscular Hemoglobin 30 pg (27-31); Mean Corpuscular Volume 87 fL (80-94); Platelet Count 327 10^3/uL (150-450); Red Blood Count 4.16 10^6 /uL (4.18-5.48); Red Cell Distribution Width 13 % (10-15); White Blood Count 8.3 10^3/uL (3.5-10.8)
[2019-03-29 06:33] LABS: Calcium 8.5 mg/dL (8.6-10.3); EGFR African American 96.4 (>60); EGFR Non-African American 79.7 (>60); Potassium 3.6 mmol/L (3.5-5.0)
[2019-03-29] MEDS: Vancomycin(*) 1,250 MG in NS 0.9% 250 ML* 250 ML IVPB SCH ×2 (06:43→14:23)
[2019-03-29] MEDS: Pantoprazole TAB * 40 MG TAB PO SCH (08:26)
[2019-03-29] MEDS: Mometasone/Formoter 200/5 MDI INH SCH (08:26)
[2019-03-29] MEDS: Enoxaparin(*) 40 MG/0.4 ML SYR SUBCUT SCH (08:27)
[2019-03-29] MEDS: cefTRIAXone(*) 2 GM in NS 0.9% 100 ML* 100 ML IVPB SCH (09:04)
--- NOTE | 2019-03-29 09:42 | PN ---
Progress Note - Progress Note Date of Service: 03/29/19 SOAP: Subjective: CC: Right 2nd finger and left shoulder septic arthritis HPI: Mr. Kaufman is a 28 year old male with no significant PMH; who was found to have septic arthritis of the left shoulder and right 2nd MCP joint. Denies fever, chills, nausea, vomiting, or diarrhea. Pain is controlled. Objective: Vital Signs - 8 hr 03/29/19 03/29/19 04:17 07:20 Temperature 98.4 F 98.4 F Pulse Rate 84 66 Respiratory 16 16 Rate Blood Pressure 121/76 123/71 (mmHg) O2 Sat by Pulse 96 98 Oximetry Physical Exam: General: NAD, sitting up in bed Neurological: Alert and Oriented x 3 HEENT: Moist MM, no thrush Cardiovascular: Heart rate regular Respiratory: Lung sounds clear Abdominal: Bowel sounds present; ABD soft, non tender and non distended MSK: Limited ROM left shoulder and right 1st finger, improving Skin: No rash; DSGs to right 1st finger and left shoulder - clean, dry and intact, no surrounding erythema Laboratory Results - last 24 hr 03/26/19 03/29/19 03/29/19 10:30 05:35 05:35 WBC 8.3 RBC 4.16 L Hgb 12.3 L Hct 36 L MCV 87 MCH 30 MCHC 34 RDW 13 Plt Count 327 MPV 8.0 Neut % (Auto) 66.7 Lymph % (Auto) 24.0 Sunflower % (Auto) 7.5 Eos % (Auto) 1.4 Baso % (Auto) 0.4 Absolute Neuts (auto) 5.6 Absolute Lymphs (auto) 2.0 Absolute Monos (auto) 0.6 Absolute Eos (auto) 0.1 Absolute Basos (auto) 0.0 Absolute Nucleated RBC 0.0 Nucleated RBC % 0.0 Sodium 141 Potassium 3.6 Chloride 108 Carbon Dioxide 26 Anion Gap 7 BUN 11 Creatinine 1.10 Est GFR ( Amer) 96.4 Est GFR (Non-Af Amer) 79.7 BUN/Creatinine Ratio 10.0 Glucose 92 Calcium 8.5 L Microbiology 03/26/19 17:40 Anaerobic Culture - Preliminary Wound No Growth Day 3 03/26/19 17:40 Gram Stain - Final Shoulder Left Wound Culture - Preliminary No Growth Day 3 03/26/19 11:04 Gram Stain - Final Joint Fluid(Synovial) - Shoulder Left Body Fluid Culture - Preliminary No Growth Day 3 Skin and Soft Tissue MRSA/MSSA (PCR - Final Mrsa Negative S.aureus Negative 03/26/19 07:49 Aerobic Blood Culture - Preliminary Blood Venous No Growth Day 3 Anaerobic Blood Culture - Preliminary No Growth Day 3 03/26/19 08:00 Urine Culture - Final Urine No Growth (<1,000 CFU/mL) Assessment: 1. Polyarticular septic arthritis. Wound cultures and blood cultures with no growth to date. Afebrile and leukocytosis has resolved. Pain is controlled. Differential includes staph, strep, gram negative rods, Rat Bite Fever, and gonococcal arthritis. Plan: Continue vancomycin, goal trough 15-20 and ceftriaxone 1 gm daily, day 09/27. Will discharge on this combo. 25 minutes floor time >50% face to face with the patient discussing PICC and home antibiotics, lab monitoring, and when to call the office; fever, rash or diarrhea.
--- NOTE | 2019-03-29 15:45 | PN ---
Progress Note - Progress Note Date of Service: 03/29/19 SOAP: Subjective: []Pt seen at bedside. He feels well and desires DC home today. He had a picc placed and briova teaching, medications to be delivered to his home tonight. Denies CP, SOB, dizziness, nausea, fever or chills. Objective: [] Gen: Appears well, NAD LUE: Dressings changed, incisions are CDI and no erythema, shoulder without erythema or edema. Active ROM 0-70 and Passive ROM 0-100 adb and ff without pain. Sensation intact to light touch distally, capillary refill less than two seconds distally RUE: Dressing changed, incision CDI and no erythema. Able to f/e all digits, no pain with full passive extension, able to make a loose fist. Sensation intact to light touch distally, cap refill less than two seconds distally. Assessment: []1. Left septic shoulder arthritis. 2. Right hand second metacarpophalangeal joint septic arthritis. OPERATIVE PROCEDURE: 1. Left shoulder arthroscopic irrigation and glenohumeral joint debridement. 2. Right hand second metacarpophalangeal joint open capsulotomy and irrigation and debridement. Plan: []WBAT L shoulder WBAT R hand ID consulting: ceftriaxone and vancomycin, cont follow cultures Vital Signs Temp 98.4 F 03/29/19 07:20 Pulse 66 03/29/19 07:20 Resp 18 03/29/19 08:00 BP 123/71 03/29/19 07:20 Pulse Ox 98 03/29/19 07:20 Intake & Output 03/28/19 03/29/19 03/29/19 18:59 06:59 18:59 Intake Total 1030 1250 800 Output Total 2750 2100 2100 Balance -1720 -850 -1300 Intake: IVPB 380 480 ABX - CEFTRIAXONE 110 210 ABX - VANCOMYCIN 270 270 Oral 650 1250 320 Output: Urine 2750 2100 2100 Laboratory Last Values WBC 8.3 10^3/uL (3.5-10.8) 03/29/19 05:35 RBC 4.16 10^6 /uL (4.18-5.48) L 03/29/19 05:35 Hgb 12.3 g/dL (14.0-18.0) L 03/29/19 05:35 Hct 36 % (42-52) L 03/29/19 05:35 MCV 87 fL (80-94) 03/29/19 05:35 MCH 30 pg (27-31) 03/29/19 05:35 MCHC 34 g/dL (31-36) 03/29/19 05:35 RDW 13 % (10-15) 03/29/19 05:35 Plt Count 327 10^3/uL (150-450) 03/29/19 05:35 MPV 8.0 fL (7.4-10.4) 03/29/19 05:35 Neut % (Auto) 66.7 % 03/29/19 05:35 Lymph % (Auto) 24.0 % 03/29/19 05:35 [place] % (Auto) 7.5 % 03/29/19 05:35 Eos % (Auto) 1.4 % 03/29/19 05:35 Baso % (Auto) 0.4 % 03/29/19 05:35 Absolute Neuts (auto) 5.6 10^3/ul (1.5-7.7) 03/29/19 05:35 Absolute Lymphs (auto) 2.0 10^3/ul (1.0-4.8) 03/29/19 05:35 Absolute Monos (auto) 0.6 10^3/ul (0-0.8) 03/29/19 05:35 Absolute Eos (auto) 0.1 10^3/ul (0-0.6) 03/29/19 05:35 Absolute Basos (auto) 0.0 10^3/ul (0-0.2) 03/29/19 05:35 Absolute Nucleated RBC 0.0 10^3/ul 03/29/19 05:35 Nucleated RBC % 0.0 03/29/19 05:35 ESR 47 mm/Hr (0-14) H 03/26/19 07:49 Sodium 141 mmol/L (135-145) 03/29/19 05:35 Potassium 3.6 mmol/L (3.5-5.0) 03/29/19 05:35 Chloride 108 mmol/L (101-111) 03/29/19 05:35 Carbon Dioxide 26 mmol/L (22-32) 03/29/19 05:35 Anion Gap 7 mmol/L (2-11) 03/29/19 05:35 BUN 11 mg/dL (6-24) 03/29/19 05:35 Creatinine 1.10 mg/dL (0.67-1.17) 03/29/19 05:35 Est GFR ( Amer) 96.4 (>60) 03/29/19 05:35 Est GFR (Non-Af Amer) 79.7 (>60) 03/29/19 05:35 BUN/Creatinine Ratio 10.0 (8-20) 03/29/19 05:35 Glucose 92 mg/dL (70-100) 03/29/19 05:35 Calcium 8.5 mg/dL (8.6-10.3) L 03/29/19 05:35 Total Bilirubin 0.90 mg/dL (0.2-1.0) 03/26/19 07:49 AST 26 U/L (13-39) 03/26/19 07:49 ALT 26 U/L (7-52) 03/26/19 07:49 Alkaline Phosphatase 64 U/L (34-104) 03/26/19 07:49 Total Creatine Kinase 100 U/L (10-223) 03/26/19 07:49 C-Reactive Protein 148.07 mg/L (<8.01) H 03/26/19 07:49 Total Protein 7.8 g/dL (6.4-8.9) 03/26/19 07:49 Albumin 4.5 g/dL (3.2-5.2) 03/26/19 07:49 Globulin 3.3 g/dL (2-4) 03/26/19 07:49 Albumin/Globulin Ratio 1.4 (1-3) 03/26/19 07:49 Urine Color Kendal 03/26/19 08:00 Urine Appearance Cloudy 03/26/19 08:00 Urine pH 5.0 (5-9) 03/26/19 08:00 Ur Specific [place] 1.036 (1.010-1.030) H 03/26/19 08:00 Urine Protein 2+(100 mg/dl) (Negative) A 03/26/19 08:00 Urine Ketones 2+ (Negative) A 03/26/19 08:00 Urine Blood Negative (Negative) 03/26/19 08:00 Urine Nitrate Negative (Negative) 03/26/19 08:00 Urine Bilirubin Negative (Negative) 03/26/19 08:00 Urine Urobilinogen Negative (Negative) 03/26/19 08:00 Ur Leukocyte Esterase Negative (Negative) 03/26/19 08:00 Urine WBC (Auto) 1+(6-10/hpf) (Absent) A 03/26/19 08:00 Urine RBC (Auto) 1+(3-5/hpf) (Absent) A 03/26/19 08:00 Urine Bacteria Absent (Absent) 03/26/19 08:00 Urine Glucose Negative (Negative) 03/26/19 08:00 Urine Ascorbic Acid * (Negative) A 03/26/19 08:00 Fluid Source Synovial fluid 03/26/19 10:30 Fluid Volume 3.0 mL 03/26/19 10:30 Fluid Color Yellow 03/26/19 10:30 Fluid Appearance Cloudy 03/26/19 10:30 Fluid WBC 74654 /mcL (0-282613) 03/26/19 10:30 Fluid RBC 87247 /mcL 03/26/19 10:30 Fluid Tot Cell Count 100 03/26/19 10:30 Fluid Neutrophils 93 % 03/26/19 10:30 Fluid Lymphocytes 2 % 03/26/19 10:30 Fluid Monocytes 5 % 03/26/19 10:30 Fluid Cell Count Rvw By 03/26/19 10:30 Vancomycin Trough 10.9 mcg/mL 03/29/19 05:35 C.trachomatis (Amp Det) Negative (Negative) 03/26/19 07:53 HIV 1&2 Ab/P24 Ag 4thGn Nonreactive (Nonreactive) 03/27/19 11:10 N.gonorrhoeae (Amp Det) Negative (Negative) 03/26/19 07:53 Miscellaneous Test See comment 03/26/19 10:30
--- NOTE | 2019-03-29 15:52 | DS ---
Orthopedic Discharge Summary - Discharge Summary Date of Admission:03/26/19 Date of Discharge: 03/29/19 Date of Surgery: 03/26/19 Attending Orthopedic Provider: Dr Tirado Admission/ preop Diagnosis: Left septic shoulder arthritis. Right hand second metacarpophalangeal joint septic arthritis. Operative Procedure: [Left shoulder arthroscopic irrigation and glenohumeral joint debridement. 2. Right hand second metacarpophalangeal joint open capsulotomy and irrigation and debridement. Disposition of Patient: home Condition of Patient: stable History: ALBAN GARNICA is a 28 year old M with Left septic shoulder arthritis. Right hand second metacarpophalangeal joint septic arthritis. Hospital Course: ALBAN was admitted to [facility] on 03/26/19. Patient underwent a [Left shoulder arthroscopic irrigation and glenohumeral joint debridement.2. Right hand second metacarpophalangeal joint open capsulotomy and irrigation and debridement.] without complication followed by a brief recovery in PACU and transfer to the Short Stay Surgical Unit in stable condition. Our hospitalist service, infectious disease, physical therapy and occupational therapy also participated in this patients care. Post-op day 1: patient was alert and in no acute distress. Dressings clean, dry and intact. NVI distally BL UE. Post-op day two and three: dressings were changed, incisions clean, dry and intact. Picc line placed and briova teaching completed 03/29. Patient was deemed to be medically and orthopedically stable for discharge. Physical therapy goals were met. Home Medications Medication Instructions Recorded Confirmed Type Ibuprofen [Advil] 400 mg PO Q6HR PRN 03/24/19 03/24/19 History Acetaminophen TAB* [Tylenol TAB*] 975 mg PO Q8HR PRN tab 03/29/19 Rx Discharge Instructions following Orthopedic Surgery: Activity: * Weight Bearing as tolerated Left upper extremity. Weight bearing as tolerated right hand. Due to Picc line, no lifting greater than 5 pounds with the right arm. * Continue physical therapy and occupational therapy exercises as shown Wound care: * okay to shower post op day 3. Remove dressings and allow water to run over incisions, Do not submerge. pat dry and cover with gauze and tape. * Follow instruction regarding picc care from picc nurse and infectious disease Call Orthopedic office for: * Increased drainage * Redness * Increased pain * Fever Go to ER with shortness of breath or chest pain. Diet: * Regular diet * Increase fluids and fiber to prevent constipation. * Continue to use stool softeners, call office if no bowel motion within 48 hours. Medications See Home Medication List in your packet for medications that you should take after discharge. Pain Control: tylenol 650 mg every 4 hours for pain as needed, max of 4000 mg daily Antibiotics and lab monitoring per infectious disease: vancomycin, goal trough 15-20 and ceftriaxone 1 gm daily, day 09/27. FOLLOW UP: Follow up with [Celestino] next week, call for appointment Please call our office with any questions or concerns ([phone]) No Rx needed. Use Over the counter tylenol and colace as described above Nikita to deliver antibiotics today
[2019-03-29 15:54] VITALS: BP 113/73
[2019-03-29 21:28] LABS: C. trach Amplified RNA Negative (Negative); N Gonorr Amplified RNA Positive (Negative); Source THROAT
[2019-03-29 21:28] LABS: C. trach Amplified RNA Negative (Negative); N Gonorr Amplified RNA Negative (Negative); Source RECTAL
[2019-03-30] MEDS ORDERED: Scopolamine PATCH Remove* 1 NOTE MISC PATCH OFF SCH (13:00)
[2019-03-31 15:02] LABS: Dengue Fever IgG Antibody Negative (Negative); Dengue Fever IgM Antibody Negative (Negative)
[2019-04-01] MEDS ORDERED: Vancomycin Trough Check NOTE FOLLOW UP ONE (05:30)
== END 2019-03-29 17:12 | disposition home or self-care (01) | DRG 720 ==
LOC: ED 07:00 → SSU 11:10
PROVIDERS: ADMIT Orthopaedic Surgery Hand Surgery; ATTEND Orthopaedic Surgery Hand Surgery
PROC: 0R9K4ZZ Drainage of Left Shoulder Joint, Percutaneous Endoscopic Approach (ICD-10-PCS; principal; 2019-03-26 15:00)
PROC: 0R9 Upper Joints, Drainage (ICD-10-PCS; 2019-03-26 15:00)
PROC: 02HV33Z Insertion of Infusion Device into Superior Vena Cava, Percutaneous Approach (ICD-10-PCS; 2019-03-29)
DX: A41.9 Sepsis, unspecified organism (principal); M00.9 Pyogenic arthritis, unspecified; K44.9 Diaphragmatic hernia without obstruction or gangrene; G43.909 Migraine, unspecified, not intractable, without status migrainosus; R11.0 Nausea; Z87.11 Personal history of peptic ulcer disease
CPT/HCPCS: 36415; 80048; 80053; 80202; 81003; 81015; 82550; 85025; 85652; 86140; 86790; 87040; 87070; 87073; 87086; 87205; 87389; 87491; 87591; 87640; 87641; 89051; 89060; 96365; 99284; A9270-GY; C1751; J0696; J0780; J1100; J1650; J1885; J2250; J2405; J2704; J2765; J3010; J3370; J3490

== ENCOUNTER 2019-07-14 08:14 | Emergency (ER) | payer BC, OTHER ==
--- OUTSIDE RECORDS SUMMARY | 2019-07-14 08:41 | XMS REPORT | Continuity of Care Document ---
:1990 External Reference #:[id number] Author Name Elvis Yang M.D. (transmitted by agent of provider Karuna Thomas ) Address [address] [place] [address] Care Team Providers Name Role Phone Claudia Okeefe M.D. - Family Medicine Care Team Information Equities Analyst Problems Description No Information Available Social History Type Date Description Comments Sex Unknown Tobacco Use Start: Unknown Never Smoked Cigarettes Smoking Status Reviewed: 05/12/19 Never Smoked Cigarettes ETOH Use Denies alcohol use Tobacco Use Start: Unknown Patient has never smoked Recreational Drug Use Denies Drug Use Exercise Type/Frequency Exercises regularly Allergies, Adverse Reactions, Alerts Active Allergies Reaction Severity Comments Date Oxycodone vomiting 04/04/2019 Medications Active Medications SIG Qnty Indications Ordering Provider Date Truvada 1 by mouth every Unknown 200-300mg Tablets day History Medications No Active Medications Unknown 05/09/2019 - 05/12/2019 No Active Medications Unknown 05/05/2019 - 05/05/2019 Immunizations CPT Code Status Date Vaccine Lot # [id number] Given 12/21/2018 Influenza Virus Vaccine, Quadrivalent, Split, Preservative Free Vital Signs Date Vital Result Comment 05/12/2019 9:09am Height 66 inches 5'6" Weight 128.25 lb Heart Rate 72 /min BP Systolic Sitting 114 mmHg BP Diastolic Sitting 62 mmHg Respiratory Rate 14 /min Body Temperature 98.4 F BMI (Body Mass Index) 20.7 kg/m2 05/09/2019 1:08pm Height 66 inches 5'6" Weight 127.00 lb Heart Rate 64 /min BP Systolic 108 mmHg BP Diastolic 76 mmHg Body Temperature 98.3 F Pain Level 2 BMI (Body Mass Index) 20.5 kg/m2 Results Test Acquired Date Facility Test Result H/L Range Note GC/Chlamydia 05/12/2019 [facility] GCC Disclaimer (SEE NOTE) 1 Amplified Rna [address] [place] [address] [phone] Chlamydia trachomatis Sandi Negative Negative Neisseria gonorrhoeae (GC) Sandi Negative Negative Laboratory test 05/12/2019 [facility] C Trachomatis Misc < pending> finding [address] [place] [address] [phone] N Gonorrhoea Misc Source Rna <pending> Ctrach&Ngonorr Amplified Rna 05/12/2019 [facility] Source RECTUM [address] [place] [address] [phone] C. trach Amplified Rna Negative Negative 2 Source RECTUM N Gonorr Amplified Rna Negative Negative 3 Laboratory test 05/12/2019 [facility] C Trachomatis Misc < pending> finding [address] [place] [address] [phone] N Gonorrhoea Misc Source Rna <pending> Ctrach&Ngonorr Amplified Rna 05/12/2019 [facility] Source THROAT [address] [place] [address] [phone] C. trach Amplified Rna Negative Negative 4 Source THROAT N Gonorr Amplified Rna Negative Negative 5 CBC Auto 04/21/2019 [facility] White Blood 6.4 10^3/uL Normal 3.5-10.[address] [place] [address] [phone] Red Blood Count 4.85 10^6/uL Normal 4.18-5.48 Hemoglobin 14.1 g/dL Normal 14.0-18.0 Hematocrit 42 % Normal 42-52 Mean Corpuscular Volume 86 fL Normal 80-94 Mean Corpuscular Hemoglobin 29 pg Normal 27-31 Mean Corpuscular HGB Conc 34 g/dL Normal 31-36 Red Cell Distribution Width 13 % Normal 10-15 Platelet Count 349 10^3/uL Normal 150-450 Mean Platelet Volume 8.9 fL Normal 7.4-10.4 Abs Neutrophils 3.9 10^3/uL Normal 1.5-7.7 Abs Lymphocytes 2.1 10^3/uL Normal 1.0-4.8 Abs Monocytes 0.3 10^3/uL Normal 0-0.8 Abs Eosinophils 0.1 10^3/uL Normal 0-0.6 Abs Basophils 0.0 10^3/uL Normal 0-0.2 Abs Nucleated RBC 0.0 10^3/uL Granulocyte % 61.0 % Lymphocyte % 32.1 % Monocyte % 5.4 % Eosinophil % 1.2 % Basophil % 0.3 % Nucleated Red Blood Cells % 0.0 Comp Metabolic 04/21/2019 [facility] Sodium 138 mmol/L Normal 135-[address] [place] [address] [phone] Chloride 102 mmol/L Normal 101-111 Co2 Carbon Dioxide 29 mmol/L Normal 22-32 Glucose 106 mg/dL High 70-100 Blood Urea Nitrogen 19 mg/dL Normal 6-24 Creatinine 0.99 mg/dL Normal 0.67-1.17 BUN/Creatinine Ratio 19.2 Normal 8-20 Calcium 9.4 mg/dL Normal 8.6-10.3 Total Protein 7.0 g/dL Normal 6.4-8.9 Albumin 4.5 g/dL Normal 3.2-5.2 Globulin 2.5 g/dL Normal 2-4 Albumin/Globulin Ratio 1.8 Normal 1-3 Total Bilirubin 0.50 mg/dL Normal 0.2-1.0 Alkaline Phosphatase 69 U/L Normal 34-104 Alt 21 U/L Normal 7-52 Ast 19 U/L Normal 13-39 Egfr Non- 89.4 >60 Egfr 108.1 >60 6 Potassium 5.1 mmol/L High 3.5-5.0 Anion Gap 7 mmol/L Normal 2-11 Laboratory test 04/21/2019 [facility] C Reactive 1.34 mg/L Normal <8.01 [address] [place] [address] [phone] CBC Auto Diff 04/14/2019 [facility] White Blood 6.2 Normal 3.5 -10.[address] Count 10^3/[place] [address] [phone] Red Blood Count 4.78 10^6/uL Normal 4.18-5.48 Hemoglobin 14.0 g/dL Normal 14.0-18.0 Hematocrit 41 % Low 42-52 Mean Corpuscular Volume 85 fL Normal 80-94 Mean Corpuscular Hemoglobin 29 pg Normal 27-31 Mean Corpuscular HGB Conc 35 g/dL Normal 31-36 Red Cell Distribution Width 13 % Normal 10-15 Platelet Count 487 10^3/uL High 150-450 Mean Platelet Volume 7.8 fL Normal 7.4-10.4 Abs Neutrophils 3.4 10^3/uL Normal 1.5-7.7 Abs Lymphocytes 2.2 10^3/uL Normal 1.0-4.8 Abs Monocytes 0.4 10^3/uL Normal 0-0.8 Abs Eosinophils 0.1 10^3/uL Normal 0-0.6 Abs Basophils 0.0 10^3/uL Normal 0-0.2 Abs Nucleated RBC 0.0 10^3/uL Granulocyte % 55.7 % Lymphocyte % 36.0 % Monocyte % 6.6 % Eosinophil % 1.2 % Basophil % 0.5 % Nucleated Red Blood Cells % 0.1 Comp Metabolic 04/14/2019 [facility] Sodium 139 mmol/L Normal 135-[address] [place] [address] [phone] Potassium 4.2 mmol/L Normal 3.5-5.0 Chloride 103 mmol/L Normal 101-111 Co2 Carbon Dioxide 27 mmol/L Normal 22-32 Anion Gap 9 mmol/L Normal 2-11 Glucose 85 mg/dL Normal 70-100 Blood Urea Nitrogen 16 mg/dL Normal 6-24 Creatinine 0.99 mg/dL Normal 0.67-1.17 BUN/Creatinine Ratio 16.2 Normal 8-20 Calcium 9.7 mg/dL Normal 8.6-10.3 Total Protein 7.3 g/dL Normal 6.4-8.9 Albumin 4.3 g/dL Normal 3.2-5.2 Globulin 3.0 g/dL Normal 2-4 Albumin/Globulin Ratio 1.4 Normal 1-3 Total Bilirubin 0.50 mg/dL Normal 0.2-1.0 Alkaline Phosphatase 82 U/L Normal 34-104 Alt 26 U/L Normal 7-52 Ast 18 U/L Normal 13-39 Egfr Non- 89.4 >60 Egfr 108.1 >60 8 Laboratory test 04/14/2019 [facility] C Reactive 2.19 Normal < 8.01 [address] Protein mg/[place] [address] [phone] CBC Auto Diff 04/04/2019 [facility] White Blood 9.9 Normal 3.5 -10.[address] Count 10^3/[place] [address] [phone] Red Blood Count 5.23 10^6/uL Normal 4.18-5.48 Hemoglobin 15.4 g/dL Normal 14.0-18.0 Hematocrit 45 % Normal 42-52 Mean Corpuscular Volume 86 fL Normal 80-94 Mean Corpuscular Hemoglobin 29 pg Normal 27-31 Mean Corpuscular HGB Conc 34 g/dL Normal 31-36 Red Cell Distribution Width 13 % Normal 10-15 Platelet Count 590 10^3/uL High 150-450 Mean Platelet Volume 7.5 fL Normal 7.4-10.4 Abs Neutrophils 6.8 10^3/uL Normal 1.5-7.7 Abs Lymphocytes 1.9 10^3/uL Normal 1.0-4.8 Abs Monocytes 1.1 10^3/uL High 0-0.8 Abs Eosinophils 0.1 10^3/uL Normal 0-0.6 Abs Basophils 0.0 10^3/uL Normal 0-0.2 Abs Nucleated RBC 0.0 10^3/uL Granulocyte % 68.9 % Lymphocyte % 19.1 % Monocyte % 10.7 % Eosinophil % 1.0 % Basophil % 0.3 % Nucleated Red Blood Cells % 0.0 Comp Metabolic 04/04/2019 [facility] Sodium 137 mmol/L Normal 135-[address] [place] [address] [phone] Potassium 4.8 mmol/L Normal 3.5-5.0 Chloride 100 mmol/L Low 101-111 Co2 Carbon Dioxide 28 mmol/L Normal 22-32 Anion Gap 9 mmol/L Normal 2-11 Glucose 82 mg/dL Normal 70-100 Blood Urea Nitrogen 17 mg/dL Normal 6-24 Creatinine 0.95 mg/dL Normal 0.67-1.17 BUN/Creatinine Ratio 17.9 Normal 8-20 Calcium 10.0 mg/dL Normal 8.6-10.3 Total Protein 8.0 g/dL Normal 6.4-8.9 Albumin 4.3 g/dL Normal 3.2-5.2 Globulin 3.7 g/dL Normal 2-4 Albumin/Globulin Ratio 1.2 Normal 1-3 Total Bilirubin 0.60 mg/dL Normal 0.2-1.0 Alkaline Phosphatase 87 U/L Normal 34-104 Alt 49 U/L Normal 7-52 Ast 19 U/L Normal 13-39 Egfr Non- 94.4 >60 Egfr 114.2 >60 11 Laboratory test 04/04/2019 [facility] C Reactive 18.79 mg/L High <8.01 [address] [place] [address] [phone] Body Fluid Cell 03/26/2019 [facility] Body Fluid Synovial [address] [place] [address] [phone] Body Fluid WBC 27071 /mcL Normal 14 Body Fluid RBC 73745 /mcL Body Fluid Neutrophils 93 % Body Fluid Lymph 2 % Body Fluid Troup 5 % Body Fluid Total Cells Counted 100 Body Fluid Appearance Cloudy Body Fluid Color Yellow Body Fluid Volume 3.0 mL Fluid Reviewed By MD (SEE NOTE) 15 1 As with all diagnostic procedures, the laboratory results obtained should be used in conjunction with other clinical information available to the physician, including confirmation by another method, as applicable. 2 ADDITIONAL INFORMATION This report is intended for use in clinical monitoring and management of patients. It is not intended for use in medical-legal applications. This test has been modified from the belt operator's instructions. Its performance characteristics were determined by [facility] in a manner consistent with CLIA requirements. This test has not been cleared or approved by the U.S. Food and Drug Administration. 3 ADDITIONAL INFORMATION This report is intended for use in clinical monitoring and management of patients. It is not intended for use in medical-legal applications. This test has been modified from the belt operator's instructions. Its performance characteristics were determined by [facility] in a manner consistent with CLIA requirements. This test has not been cleared or approved by the U.S. Food and Drug Administration. Test Performed by: [address] [address] Operator Control Room: Magno Rosenthal M.D. Ph.D.; CLIA# [id number] 4 ADDITIONAL INFORMATION This report is intended for use in clinical monitoring and management of patients. It is not intended for use in medical-legal applications. This test has been modified from the belt operator's instructions. Its performance characteristics were determined by [facility] in a manner consistent with CLIA requirements. This test has not been cleared or approved by the U.S. Food and Drug Administration. 5 ADDITIONAL INFORMATION This report is intended for use in clinical monitoring and management of patients. It is not intended for use in medical-legal applications. This test has been modified from the belt operator's instructions. Its performance characteristics were determined by [facility] in a manner consistent with CLIA requirements. This test has not been cleared or approved by the U.S. Food and Drug Administration. Test Performed by: [place] [address] Operator Control Room: Magno Rosenthal M.D. Ph.D.; CLIA# [id number] 6 Because ethnic data is not always readily available, this report includes an eGFR for both -Americans and non- Americans. The National Kidney Disease Education Program (NKDEP) does not endorse the use of the MDRD equation for patients that are not between the ages of 18 and 70, are , have extremes of body size, muscle mass, or nutritional status, or are non- or non-. According to the National Kidney Foundation, irrespective of diagnosis, the stage of the disease is based on the level of kidney function: Stage Description GFR(mL/min/1.73 m(2)) 1 Kidney damage with normal or decreased GFR 90 2 Kidney damage with mild decrease in GFR 60-89 3 Moderate decrease in GFR 30-59 4 Severe decrease in GFR 15-29 5 Kidney failure <15 (or dialysis) 7 [id number] 8 Because ethnic data is not always readily available, this report includes an eGFR for both -Americans and non- Americans. The National Kidney Disease Education Program (NKDEP) does not endorse the use of the MDRD equation for patients that are not between the ages of 18 and 70, are , have extremes of body size, muscle mass, or nutritional status, or are non- or non-. According to the National Kidney Foundation, irrespective of diagnosis, the stage of the disease is based on the level of kidney function: Stage Description GFR(mL/min/1.73 m(2)) 1 Kidney damage with normal or decreased GFR 90 2 Kidney damage with mild decrease in GFR 60-89 3 Moderate decrease in GFR 30-59 4 Severe decrease in GFR 15-29 5 Kidney failure <15 (or dialysis) 9 [id number] 11 Because ethnic data is not always readily available, this report includes an eGFR for both -Americans and non- Americans. The National Kidney Disease Education Program (NKDEP) does not endorse the use of the MDRD equation for patients that are not between the ages of 18 and 70, are , have extremes of body size, muscle mass, or nutritional status, or are non- or non-. According to the National Kidney Foundation, irrespective of diagnosis, the stage of the disease is based on the level of kidney function: Stage Description GFR(mL/min/1.73 m(2)) 1 Kidney damage with normal or decreased GFR 90 2 Kidney damage with mild decrease in GFR 60-89 3 Moderate decrease in GFR 30-59 4 Severe decrease in GFR 15-29 5 Kidney failure <15 (or dialysis) 12 [id number] 13 Comment: L glenohumeral joint aspirate 14 -- REFERENCE VALUE -- Synovial: <150/mcL Peritoneal: <500/mcL Pleural: <500/mcL Pericardial: <500/mcL 15 Acute inflammation present. No microorganisms are identified by light microscopy. Correlation with microbiology studies is recommended. Reviewed by Dr. 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 shoulder 05/12/2019 Z11.3 Encounter for screening for Elvis Yang M.D. infections with a predominantly sexual mode of transmission 05/12/2019 Z11.4 Encounter for screening for human Elvis Yang M.D. immunodeficiency virus [HIV] 05/09/2019 M00.812 Arthritis due to other bacteria, left Sánchez Tirado MD shoulder 05/09/2019 Z47.89 Encounter for other orthopedic Sánchez Tirado MD aftercare 05/05/2019 M00.812 Arthritis due to other bacteria, left Nathalie Momin MD shoulder 05/05/2019 M00.841 Arthritis due to other bacteria, Nathalie Momin MD right hand 05/05/2019 Z47.89 Encounter for other orthopedic Nathalie Momin MD aftercare 05/05/2019 R00.2 Palpitations Nathalie Momin MD 04/10/2019 M00.812 Arthritis due to other bacteria, left Elvis Yang M.D. shoulder 04/10/2019 M00.841 Arthritis due to other bacteria, Elvis Yang M.D. right hand 04/05/2019 A54.42 Gonococcal arthritis Sánchez Tirado MD 04/05/2019 Z47.89 Encounter for other orthopedic Sánchez Tirado MD aftercare 04/04/2019 A54.42 Gonococcal arthritis Tiffany Fraga DO 03/29/2019 M00.812 Arthritis due to other bacteria, left Toyin Boss NP shoulder 03/29/2019 M00.841 Arthritis due to other bacteria, Toyin Boss NP right hand 03/28/2019 K92.0 Hematemesis Alyson Toth MD 03/28/2019 M00.812 Arthritis due to other bacteria, left Elvis Yang M.D. shoulder 03/28/2019 M00.841 Arthritis due to other bacteria, Elvis Yang M.D. right hand 03/27/2019 R50.9 Fever, unspecified Deborah Calabrese D.O. 03/27/2019 M00.812 Arthritis due to other bacteria, left Elvis Yang M.D. shoulder 03/27/2019 I95.9 Hypotension, unspecified Deborah Calabrese D.O. 03/27/2019 M00.841 Arthritis due to other bacteria, Elvis Yang M.D. right hand 03/27/2019 R21 Rash and other nonspecific skin Elvis Yang M.D. eruption 03/27/2019 R50.9 Fever, unspecified Elvis Yang M.D. 03/26/2019 M00.812 Arthritis due to other bacteria, left Daisy Muir PA-C shoulder 03/26/2019 A54.42 Gonococcal arthritis Sánchez Tirado MD 03/26/2019 B96.89 Other specified bacterial agents as MALINDA Rucker the cause of diseases classified elsewhere 03/26/2019 A54.42 Gonococcal arthritis Sánchez Tirado MD 03/26/2019 M00.841 Arthritis due to other bacteria, Sánchez Tirado MD right hand 03/26/2019 M00.812 Arthritis due to other bacteria, left Sánchez Tirado MD shoulder 03/26/2019 B96.89 Other specified bacterial agents as Sánchez Tirado MD the cause of diseases classified elsewhere Plan of Treatment 05/09/2019 - Sánchez Tirado MDM00.812 Arthritis due to other bacteria, left shoulderFollow up:Follow up: As [id number] Encounter for other orthopedic aftercare Functional Status Description No Information Available Mental Status Description No Information Available Referrals Description No Information Available
[2019-07-14 09:12] LABS: Influenza A Molecular Negative (Negative); Influenza B Molecular Negative (Negative)
--- NOTE | 2019-07-14 10:35 | UC ---
FLU HPI - HPI Summary HPI Summary: 29-year-old male presenting with sore throat and mild dry cough since yesterday. Notes minimal nasal congestion. Denies shortness of breath and wheezing. Denies nausea and vomiting. Denies difficulty swallowing. Denies fever, chills, fatigue. States he took ibuprofen which significantly reduced sore throat. - History of Current Complaint Chief Complaint: UCRespiratory Stated Complaint: FLU SYMPTOMS Time Seen by Provider: 07/14/19 08:39 Hx Obtained From: Patient Pain Intensity: 2 Pain Scale Used: 0-10 Numeric - Allergy/Home Medications Allergies/Adverse Reactions: Allergies Allergy/AdvReac Type Severity Reaction Status Date / Time hydrocodone Allergy See Comment Verified 07/14/19 08:45 Home Medications: Home Medications Ibuprofen [Advil] 400 mg PO Q6HR PRN 03/24/19 [History Confirmed 07/14/19] Tenofovir/Emtricitab 200/300 * [Truvada 200/300 mg*] 1 tab PO DAILY 07/14/19 [ History Confirmed 07/14/19] PMH/Surg Hx/FS Hx/Imm Hx Previously Healthy: Yes - Surgical History Surgical History: Yes Surgery Procedure, Year, and Place: ENDO 10 YEARS AGO. right index knuckle,. right shoulder - Family History Known Family History: Negative: Cardiac Disease, Hypertension, Diabetes - Social History Alcohol Use: None Substance Use Type: None Smoking Status (MU): Never Smoked Tobacco - Immunization History Most Recent Influenza Vaccination: 12/2018 Most Recent Pneumonia Vaccination: NONE Review of Systems All Other Systems Reviewed And Are Negative: Yes Constitutional: Positive: Negative ENT: Positive: Sore Throat, Sinus Congestion Respiratory: Positive: Cough. Negative: Shortness Of Breath Cardiovascular: Positive: Negative Gastrointestinal: Positive: Negative Musculoskeletal: Positive: Negative. Negative: Myalgia Neurological/Mental Status: Positive: Negative Physical Exam - Summary Physical Exam Summary: Vital Signs Reviewed: Yes A+Ox3, no distress, well-appearing Eyes: Conjunctiva Clear ENT: Hearing grossly normal, TM x 2 clear, moist, uvula midline, no exudate, + mild pharyngeal erythema, no tonsillar swelling Neck: Positive: Supple, nontender, no lymphadenopathy Respiratory: Positive: No respiratory distress, No accessory muscle use + CTA throughout no w/r Cardiovascular: RRR nl s1, s2 no m/r Musculoskeletal Exam: MARAVILLA x 4 without difficulty Neurological: Positive: Alert Psychological: Positive: age appropriate behavior Skin: Positive: no rash, no ecchymosis Vital Signs: Initial Vital Signs Temp 97.9 F 07/14/19 08:37 Pulse 74 07/14/19 08:37 Resp 18 07/14/19 08:37 BP 116/84 07/14/19 08:37 Pulse Ox 99 07/14/19 08:37 Lab Results 07/14/19 07/14/19 Range/Units 08:59 09:00 Influenza A (Rapid) Negative (Negative) Influenza B (Rapid) Negative (Negative) Group A Strep Rapid Negative (Negative) Flu Course/Dx - Course Course Of Treatment: Negative rapid strep and flu tests. Discussed viral illness with patient and instructed to continue with symptomatic treatment. Instructed to follow up with PCP for new or worsening symptoms. Patient voiced understanding and agreed with the treatment plan. - Differential Dx/Diagnosis Provider Diagnosis: Viral URI with cough, Pharyngitis Discharge ED - Sign-Out/Discharge Documenting (check all that apply): Patient Departure All imaging exams completed and their final reports reviewed: No Studies - Discharge Plan Condition: Stable Disposition: HOME Patient Education Materials: Upper Respiratory Infection (ED), Pharyngitis (ED) Forms: *Work Release Referrals: Claudia Okeefe MD [Primary Care Provider] - If Needed Additional Instructions: As discussed, you tested negative for strep and flu today. Your symptoms are likely caused by a virus and should resolve without treatment. Continue to take ibuprofen and/or tylenol as directed for pain relief. You may use over the counter throat sprays or lozenges for symptomatic relief. Get plenty of rest and fluids. Follow up with your primary care provider if symptoms worsen or do not improve within 7-10 days. - Billing Disposition and Condition Condition: STABLE Disposition: Home
[2019-07-14 11:18] VITALS: BP 122/78
== END 2019-07-14 11:03 | disposition home or self-care (01) ==
LOC: UCEAST 08:14
DX: J06.9 Acute upper respiratory infection, unspecified (principal); J02.9 Acute pharyngitis, unspecified; R05 Cough; Z88.5 Allergy status to narcotic agent
CPT/HCPCS: 87651; 99211; G0463